=== PATIENT | male | born 1945 | race Caucasian/White ===

== ENCOUNTER 2024-03-04 14:59 | Inpatient (IN) | payer MEDICARE, MEDICAID, SELFPAY ==
[2024-03-04 15:04] VITALS: BP 132/51; BP 150/50; PULSE 107; PULSE 99; RESP 18; TEMP 36.8; O2SAT 96; BMI 24.9
[2024-03-04 15:13] VITALS: BP 132/51; PULSE 99; RESP 18; TEMP 36.8; O2SAT 96
--- NOTE | 2024-03-04 15:27 | ECG_ITS ---
Test Reason : FAILURE TO THRIVE Blood Pressure : / mmHG Vent. Rate : 088 BPM Atrial Rate : 088 BPM P-R Int : 152 ms QRS Dur : 078 ms QT Int : 362 ms P-R-T Axes : 069 012 044 degrees QTc Int : 438 ms Normal sinus rhythm Normal ECG No previous ECGs available Referred By: Jo Ann Barth Electronically Signed By:YARIEL MARTIN
--- NOTE | 2024-03-04 15:28 | ED_ITS ---
HPI - General Adult General Chief complaint: Failure to Thrive Stated complaint: PYSCH EVAL, NOT EATING X5 DAYS (dm) Time Seen by Provider: 03/04/24 15:23 Source: EMS Mode of arrival: EMS Limitations: other History of Present Illness ED Provider: Dr. Jo Ann Barth HPI narrative: Patient comes to the emergency room from assisted living. Patient has been refusing to eat for over 5 days. Patient is unable to give any significant history. Patient denies any abdominal pain, no recent illnesses. However, patient is a poor historian. Patient's facility requesting a psych eval Related Data Allergies Allergy/AdvReac Type Severity Reaction Status Date / Time allopurinol AdvReac Unknown Verified 03/04/24 15:10 chlorpromazine AdvReac Unknown Verified 03/04/24 15:10 haloperidol [From Haldol] AdvReac Unknown Verified 03/04/24 15:10 trifluoperazine AdvReac Unknown Verified 03/04/24 15:10 Review of Systems 2 Review of Systems: Yes Unobtainable due to mental status [facility] Past Medical History Medical History (Updated 03/04/24 @ 20:26 by Jo Ann Barth MD) Hypertension Major depression Schizoaffective disorder, bipolar type SIADH (syndrome of inappropriate ADH production) Epilepsy Hypothyroidism Hyperlipidemia COPD (chronic obstructive pulmonary disease) Diabetes Social History Social History Alcohol intake: former Smoked in Last 30 Days: No Advance Directives: Yes Advance Directives on File: Yes Advance Directives Date on File: 03/04/24 Do you have a plan to hurt others: No Plan Physical Exam ED Vital Signs: Vital Signs - 24 hr 03/04/24 15:04 03/04/24 15:13 03/04/24 15:13 Temperature 98.2 F 98.2 F Pulse Rate 99 99 Respiratory Rate 18 18 Blood Pressure 132/51 L 132/51 L Pulse Oximetry 96 96 Oxygen Delivery Method Room Air Room Air Room Air 03/04/24 15:39 03/04/24 17:38 Temperature 98.2 F 98.1 F Pulse Rate 102 H 86 Respiratory Rate 17 15 Blood Pressure 132/51 L 145/55 H Pulse Oximetry 97 98 Oxygen Delivery Method Room Air Room Air BMI result Body Mass Index 24.9 Const Other: Appearance: Alert. Oriented X1. Seems confused Eyes: Pupils equal, round and reactive to light. ENT: Pharynx normal. Neck: Normal inspection. Neck supple. No lymph nodes noted. No crepitus CVS: Normal heart rate and rhythm. Pulses normal. Normal S1 and S2 Respiratory: No respiratory distress. Breath sounds normal. No Wheezing. No rales Abdomen: Soft and nontender. No rigidity. No distention. Skin: Skin warm and dry. Normal skin color. Normal skin turgor. Extremities: No lower extremity edema. No Lacerations. No Rash Neuro: Oriented X1. No motor deficit. No sensory deficit. Moving all extremities. No slurred speech. CN 2 through 12 grossly intact Psych: calm, cooperative, Course Course Course Narrative: -all of patient's labs pending Medical Decision Making Medical Decision Making MDM Narrative: -patient's hematology and chemistry do not show any obvious abnormality. -patient requesting scrambled eggs and jose bakari. At this time, we only have gingival. -urinalysis pending -patient's nurse was informed by the patient's facility that they will not accept the patient back because they believe he needs a higher level of care. -care team consult and case management consult pending -20:30, patient has not provided a urine analysis. Pending. -sign-out given to my colleague Dr. Cox Differential Diagnosis Differential Diagnoses: The differential diagnosis associated with the presentation includes (Dementia, UTI) Admission/Observation Consideration of admission/observation: Escalation of care including admission/observation considered (Patient is under physician observation waiting for the care team and case management) Lab Data [facility] Lab Attestation statement: I reviewed the patient's lab results. 03/04/24 15:31 03/04/24 15:31 Labs: Lab Results 03/04/24 03/04/24 Range/Units 15:31 16:25 WBC 8.8 (4.8-10.8) X10*3/uL RBC 3.60 L (4.60-5.80) X10*6/uL Hgb 11.3 L (14.0-18.0) g/dl Hct 34.3 L (42.0-52.0) % MCV 95.3 (80.0-98.0) fL MCH 31.4 (27.0-33.0) pg MCHC 32.9 (31.0-36.0) g/dl RDW 14.3 (11.0-16.0) % Plt Count 234 (160-400) X10*3/uL MPV 10.0 (9.4-12.4) fL Immature Gran % (Auto) 0.6 H (0.0-0.4) % Neut % (Auto) 76.4 H (45-73) % Lymph % (Auto) 15.7 L (20-40) % [place] % (Auto) 6.3 (2-11) % Eos % (Auto) 0.5 (0-4) % Baso % (Auto) 0.5 (0-2) % Lymph # (Auto) 1.4 (1.2-4.9) X10*3/uL [place] # (Auto) 0.6 (0.1-1.2) X10*3/uL Eos # (Auto) 0.0 (0.0-0.4) X10*3/uL Baso # (Auto) 0.0 (0.0-0.2) X10*3/uL Abs Immat Gran (auto) 0.05 H (0.00-0.03) X10*3/uL Absolute Neuts (auto) 6.7 (2.0-8.3) x10*3/uL Absolute Nucleated RBC 0.000 (0.0-0.012) X10*3/uL Nucleated RBC % (auto) 0.0 (0.0-0.2) /100WBC Sodium 143 (135-145) mmol/L Potassium 3.6 (3.3-5.1) mmol/L Chloride 111 H (96-108) mmol/L Carbon Dioxide 17 L (22-29) mmol/L Anion Gap 19 (12-20) BUN 33 H (9-16) mg/dL Creatinine 0.97 (0.5-1.4) mg/dL Estim Creat Clear Calc 64.8 Estimated GFR > 60 POC Glucose 87 (60-115) mg/dL Random Glucose 111 (60-115) mg/dL Calcium 10.0 (8.4-10.2) mg/dL Magnesium 2.0 (1.6-2.6) mg/dL Critical Care Time Critical Care Time Critical Care Time: Yes Total Critical Care Time: 45 Attestation: I have personally provided critical care time. Time includes review of lab data, radiology results, discussion with consultants, and monitoring for potential decompensation. Intervention performed as documented. Discharge Plan Discharge Clinical Impression: Adult failure to thrive, Combative behavior Patient Disposition: Still a Patient Print Language: Greenlandic
[2024-03-04 15:39] VITALS: BP 132/51; PULSE 102; RESP 17; TEMP 36.8; O2SAT 97
[2024-03-04 15:42] LABS: MANUAL DIFF FLAG NO
--- NOTE | 2024-03-04 15:42 | PC.NURSE ---
Spoke with staff from facility that the pt is coming from. She stated that he has become increasingly paranoid and combative with staff. Also she had previously placed a referral to [facility] and they stated they would accept him in their acute setting and that transferring back to previous facility is most likely not an option at this time.
[2024-03-04 15:46] LABS: Basophils Percent Auto 0.5 % (0-2); Eosinophils Percent Auto 0.5 % (0-4); Hematocrit 34.3 % (42.0-52.0); Hemoglobin 11.3 g/dl (14.0-18.0); Imm Gran Abs Auto 0.05 X10*3/uL (0.00-0.03); Imm Gran Pct Auto 0.6 % (0.0-0.4); Lymphocytes Absolute Auto 1.4 X10*3/uL (1.2-4.9); Lymphocytes Percent Auto 15.7 % (20-40); Mean Corpuscular HGB Conc 32.9 g/dl (31.0-36.0); Mean Corpuscular Hemoglobin 31.4 pg (27.0-33.0); Mean Corpuscular Volume 95.3 fL (80.0-98.0); Monocytes Absolute Auto 0.6 X10*3/uL (0.1-1.2); Monocytes Percent Auto 6.3 % (2-11); Neutrophils Absolute Auto 6.7 x10*3/uL (2.0-8.3); Neutrophils Percent Auto 76.4 % (45-73); Platelet Count 234 X10*3/uL (160-400); Red Cell Distribution Width 14.3 % (11.0-16.0); White Blood Count 8.8 X10*3/uL (4.8-10.8)
[2024-03-04 16:00] LABS: Anion Gap 19 (12-20); Blood Urea Nitrogen 33 mg/dL (9-16); Carbon Dioxide 17 mmol/L (22-29); Chloride 111 mmol/L (96-108); Creatinine Clr Calc Pharmacy 64.8; Estimated Glomerular Filt Rate > 60; Glucose Random 111 mg/dL (60-115); Potassium 3.6 mmol/L (3.3-5.1); Sodium 143 mmol/L (135-145)
[2024-03-04 16:28] LABS: Glucose, Whole Blood 87 mg/dL (60-115)
[2024-03-04 17:38] VITALS: BP 145/55; PULSE 86; RESP 15; TEMP 36.7; O2SAT 98
--- NOTE | 2024-03-04 20:18 | PC.NURSE ---
at 1900 care assumed of this patient by this RN. pt requesting a big big plate of scrambled eggs. this RN unable to obtain at this time. pt states that is the only thing he is willing to eat at this time. able to get patient to agree to drinking jose bakari. requested 2-3cans of diet jose bakari. this RN provided pt with jose bakari, pt drank all 3 cans. still waiting on urine sample at this time. pt is aware.
[2024-03-04 22:14] VITALS: BP 135/58; PULSE 92; RESP 28; TEMP 36.7; O2SAT 98
--- NOTE | 2024-03-04 22:15 | MHC.EDTECH ---
Patient requested $160.00 with wallet to be locked in safe with security, white slip in patients folder.
[2024-03-04 23:05] LABS: Appearance Urine Clear; Color Urine Yellow; Glucose Urine UA Negative (Negative); Leukocyte Esterase Urine Negative (Negative); Nitrite Urine Negative (Negative); PH 5.5 (5.0-9.0); Specific Gravity - Urine 1.025 (1.005-1.025); Urine Blood Negative (Negative); Urine Ketones 15 mg/dL (Negative); Urine Protein Trace mg/dL (Neg-Trace)
[2024-03-05] VITALS (7 sets, daily range): BP systolic 121–159; BP diastolic 56–71; PULSE 82–105; RESP 12–20; TEMP 36.2–37.8; O2SAT 97–99; BMI 24.9
--- NOTE | 2024-03-05 07:51 | PHA.MEDREC ---
Pharmacy Consult ? Medication Reconciliation Pharmacy has completed the medication reconciliation, list provided from [facility].
--- NOTE | 2024-03-05 09:19 | MHC.CM.ED ---
Received notification from [facility] Team that patient will be admitted to psych unit. Case Management consult deferred at this time.
--- NOTE | 2024-03-05 13:12 | PC.NURSE ---
patient has been calm and cooperative during this shift.
--- NOTE | 2024-03-05 14:18 | PC.NURSE ---
Addendum entered by Atiya Raya 03/05/24 14:21: section [address]. Original Note: assumed care of pt at 1415, pt changed over into behaviour health clothing in ED w belongings secured. plan for locked geripsych placement per CARE team dispo. pt a&ox4, hypertensive, other vss. requesting burger for lunch - kitchen notified. denies any needs at this time.
[2024-03-05 16:05] LABS: Glucose, Whole Blood 91 mg/dL (60-115)
--- NOTE | 2024-03-05 17:15 | PC.NURSE ---
pt ate 100% of dinner, POC wnl, no insulin coverage needed.
--- NOTE | 2024-03-05 18:50 | PC.NURSE ---
Pt arrived to the unit via wheelchair by staff & security at 1835. Pt placed on 5 minute safety checks with ULB. Pt is a 12B. helmet coverer completed. Vital signs obtained. Pt does have a healing bruise to center of forehead with with a vertical healing slit. Pt states he had a fall 2 weeks ago at [facility]. Pt oriented to unit. Pt currently resting in bed. Admission needs to be completed.
[2024-03-05 20:42] LABS: Glucose, Whole Blood 167 mg/dL (60-115)
[2024-03-05] MEDS: Sodium Chloride Tab 1 GM TABLET PO (20:48)
[2024-03-05] MEDS: Atorvastatin Calcium 20 MG TABLET 60 MG PO (20:48)
[2024-03-05] MEDS: gemfibroziL 600 MG TABLET PO (20:48)
[2024-03-05] MEDS: Acetaminophen 325 MG TABLET 975 MG PO (20:49)
[2024-03-05] MEDS: Topiramate 100 MG TABLET PO (20:49)
[2024-03-05] MEDS: Insulin Lispro 100 UNIT/ML 3 ML VIAL SUBCUT (20:50)
[2024-03-05] MEDS: risperiDONE 2 MG TABLET 8 MG PO (20:50)
--- NOTE | 2024-03-06 01:41 | PC.ADMIT ---
Wily De Dios a 78 year old male, who was admitted to S1 on 03/05/24 @ 1835 from [facility] on a Sect 12b for treatment of Schizoaffective D/O. Patient signed a CV during admission process. Patient arrived to ED after being sent in for evaluation from [facility] in [place]. Per Care Team assessment patient has been there since January and since his arrival has been medication noncompliant. Most recently he has had an increase in combative behaviors, and has refused to eat for the past 3-5 days, patient reports he doesn't trust the food @ [facility] and that it is lousy, of note he ate well in the ED. Patient has a long HX of inpt hospitalizations and long winder tender care placements. Prior to arriving @ [facility] Wily was @ [facility] for approx. 8 months. He is alert and orientated to person, place, time and situation, states I'm not going back there, I want to return to [facility] in [place] . Wily presents as anxious, paranoid, and perseverating on what medications we will attempt to give him, I will not take the yellow pill! . Patient denies depression, pain, SI/HI and AVH. Reports he can't ambulate well with a walker because of weakness and wears a brief for incontinence of urine and stool. Patient has a HX of COPD, Type 2 diabetes, Epilepsy, Hyperlipidemia, HTN, hypothyroidism, SIADH syndrome, and Scizoaffective D/O. POC 167, given Lispro 2 units coverage. Arrived with no belongings, wearing hospital johnni. Unit rules given, orientated room. Snack offered and declined. Medication compliant. Placed on 5 minute checks for safety.
[2024-03-06] MEDS: Levothyroxine Sodium 88 MCG TABLET PO (05:48)
[2024-03-06 06:48] LABS: Glucose, Whole Blood 125 mg/dL (60-115)
[2024-03-06 07:55] VITALS: BP 136/72; PULSE 100; RESP 18; TEMP 36.7; O2SAT 97
[2024-03-06] MEDS: Acetaminophen 325 MG TABLET 975 MG PO ×2 (08:05→20:35)
[2024-03-06] MEDS: Topiramate 100 MG TABLET PO ×2 (08:08→20:36)
[2024-03-06] MEDS: gemfibroziL 600 MG TABLET PO ×2 (08:08→20:36)
[2024-03-06] MEDS: lisinopriL 2.5 MG TABLET PO (08:08)
[2024-03-06] MEDS: Fenofibrate 160 MG TABLET PO (08:08)
[2024-03-06] MEDS: Cyanocobalamin (Vitamin B-12) 500 MCG TABLET PO (08:08)
[2024-03-06] MEDS: Cholecalciferol (Vitamin D3) 25 MCG TABLET PO (08:09)
[2024-03-06] MEDS: Ibuprofen 800 MG TABLET PO (08:09)
[2024-03-06] MEDS: Sodium Chloride Tab 1 GM TABLET PO ×2 (08:09→20:37)
[2024-03-06 08:14] LABS: Estimated Average Glucose 105 mg/dL; Hemoglobin A1c % 5.3 % (<6.0)
[2024-03-06 08:31] LABS: Alanine Aminotransferase 19 U/L (0-40); Albumin Level 4.2 g/dL (3.5-5.0); Alkaline Phosphatase 64 U/L (39-117); Anion Gap 16 (12-20); Aspartate Amino Transferase 24 U/L (5-37); Bilirubin Total 0.2 mg/dL (0.0-1.0); Blood Urea Nitrogen 29 mg/dL (9-16); Calcium 9.7 mg/dL (8.4-10.2); Carbon Dioxide 19 mmol/L (22-29); Chloride 108 mmol/L (96-108); Cholesterol 118 mg/dL (<200); Creatinine Clr Calc Pharmacy 58.7; Estimated Glomerular Filt Rate > 60; Glucose Fasting 143 mg/dL (60-99); HDL Cholesterol 25 mg/dL (>40); LDL Cholesterol Calculated 71 mg/dL (<100); Potassium 3.7 mmol/L (3.3-5.1); Sodium 139 mmol/L (135-145); Triglycerides 111 mg/dL (<150)
[2024-03-06 08:46] LABS: Thyroid Stimulating Hormone 0.33 uIU/mL (0.32-4.0)
[2024-03-06 09:10] LABS: Folate 4.8 ng/mL (> or = 4.0); Vitamin B12 1402 pg/mL (200-900)
[2024-03-06 11:43] LABS: Glucose, Whole Blood 144 mg/dL (60-115)
--- NOTE | 2024-03-06 14:46 | P.HPPS_ITS ---
HPI Date of Service: 03/06/24 Chief Complaint: SI Sources of Information: patient interviewed, chart reviewed and crisis/core team assessment reviewed HPI Subjective Notes: Obrien Warning and Conditional Voluntary Narrative: The patient is a 78-year-old male, a very poor historian who was transferred from [facility] to our emergency room since he was not eating for 5 days and noncompliant with medications since he was transferred from hospital to that facility on January 24. Apparently, the patient had being more aggressive, delusional and recently refused to eat for 5 days. He was rushed to the emergency room for assessment. He was assessed by the care team and transferring to this facility for psychiatric stabilization. The patient carries a diagnosis of schizoaffective disorder bipolar type and apparently he had been admitted for several months at [facility] and then transferred on January 24 2 [facility]. It is unclear if he has a role years order or a guardian. On the interview intake, the patient is a very poor historian he states that he is feeling fine that he is eating the food here and he feels safe here. He denies acute auditory hallucinations but he looks confused and disheveled. He is willing to continue treatment here. He denies active suicidal or homicidal thoughts but he looks slightly irritable with poor short attention span. We will try to gather more collateral information, he signed a conditional voluntary and understood the Obrien warning. Medical Evaluation Reviewed: Yes [facility] Medical History Hypertension Major depression Schizoaffective disorder, bipolar type SIADH (syndrome of inappropriate ADH production) Epilepsy Hypothyroidism Hyperlipidemia COPD (chronic obstructive pulmonary disease) Diabetes Family History: Unknown Social History: The patient was placed admission care on 01/25/2024 after being several months in the hospital. Substance History: Denies Trauma History: Denies Diagnostics Vital Signs (24Hr): Vital Signs - 24 hr 03/05/24 16:02 03/05/24 18:49 03/05/24 20:00 Temperature 98.3 F 97.6 F 97.1 F Pulse Rate 93 105 H 82 Respiratory Rate 20 18 16 Blood Pressure 154/66 H 159/71 H 147/65 H Pulse Oximetry 99 99 98 Oxygen Delivery Method Room Air Room Air Room Air 03/06/24 07:55 Temperature 98.1 F Pulse Rate 100 Respiratory Rate 18 Blood Pressure 136/72 Pulse Oximetry 97 Oxygen Delivery Method Room Air BMI result Body Mass Index 24.9 Labs 03/04/24 15:31 03/06/24 08:02 Labs: Laboratory Results - last 48 hr 03/04/24 03/04/24 03/04/24 15:31 16:25 22:56 WBC 8.8 RBC 3.60 L Hgb 11.3 L Hct 34.3 L MCV 95.3 MCH 31.4 MCHC 32.9 RDW 14.3 Plt Count 234 MPV 10.0 Immature Gran % (Auto) 0.6 H Neut % (Auto) 76.4 H Lymph % (Auto) 15.7 L [place] % (Auto) 6.3 Eos % (Auto) 0.5 Baso % (Auto) 0.5 Lymph # (Auto) 1.4 [place] # (Auto) 0.6 Eos # (Auto) 0.0 Baso # (Auto) 0.0 Abs Immat Gran (auto) 0.05 H Absolute Neuts (auto) 6.7 Absolute Nucleated RBC 0.000 Nucleated RBC % (auto) 0.0 Sodium 143 Potassium 3.6 Chloride 111 H Carbon Dioxide 17 L Anion Gap 19 BUN 33 H Creatinine 0.97 Estim Creat Clear Calc 64.8 Estimated GFR > 60 POC Glucose 87 Random Glucose 111 Fasting Glucose Estimat Average Glucose Hemoglobin A1c % Calcium 10.0 Magnesium 2.0 Total Bilirubin AST ALT Alkaline Phosphatase Total Protein Albumin Triglycerides Cholesterol LDL Cholesterol, Calc HDL Cholesterol Vitamin B12 Folate TSH Urine Color Yellow Urine Appearance Clear Urine pH 5.5 Ur Specific [place] 1.025 Urine Protein Trace Urine Glucose (UA) Negative Urine Ketones 15 Urine Blood Negative Urine Nitrite Negative Ur Leukocyte Esterase Negative 03/05/24 03/05/24 03/06/24 16:02 20:39 06:30 WBC RBC Hgb Hct MCV MCH MCHC RDW Plt Count MPV Immature Gran % (Auto) Neut % (Auto) Lymph % (Auto) [place] % (Auto) Eos % (Auto) Baso % (Auto) Lymph # (Auto) [place] # (Auto) Eos # (Auto) Baso # (Auto) Abs Immat Gran (auto) Absolute Neuts (auto) Absolute Nucleated RBC Nucleated RBC % (auto) Sodium Potassium Chloride Carbon Dioxide Anion Gap BUN Creatinine Estim Creat Clear Calc Estimated GFR POC Glucose 91 167 H 125 H Random Glucose Fasting Glucose Estimat Average Glucose Hemoglobin A1c % Calcium Magnesium Total Bilirubin AST ALT Alkaline Phosphatase Total Protein Albumin Triglycerides Cholesterol LDL Cholesterol, Calc HDL Cholesterol Vitamin B12 Folate TSH Urine Color Urine Appearance Urine pH Ur Specific [place] Urine Protein Urine Glucose (UA) Urine Ketones Urine Blood Urine Nitrite Ur Leukocyte Esterase 03/06/24 03/06/24 08:02 11:33 WBC RBC Hgb Hct MCV MCH MCHC RDW Plt Count MPV Immature Gran % (Auto) Neut % (Auto) Lymph % (Auto) [place] % (Auto) Eos % (Auto) Baso % (Auto) Lymph # (Auto) [place] # (Auto) Eos # (Auto) Baso # (Auto) Abs Immat Gran (auto) Absolute Neuts (auto) Absolute Nucleated RBC Nucleated RBC % (auto) Sodium 139 Potassium 3.7 Chloride 108 Carbon Dioxide 19 L Anion Gap 16 BUN 29 H Creatinine 1.07 Estim Creat Clear Calc 58.7 Estimated GFR > 60 POC Glucose 144 H Random Glucose Fasting Glucose 143 H Estimat Average Glucose 105 Hemoglobin A1c % 5.3 Calcium 9.7 Magnesium Total Bilirubin 0.2 AST 24 ALT 19 Alkaline Phosphatase 64 Total Protein 7.0 Albumin 4.2 Triglycerides 111 Cholesterol 118 LDL Cholesterol, Calc 71 HDL Cholesterol 25 L Vitamin B12 1402 H Folate 4.8 TSH 0.33 Urine Color Urine Appearance Urine pH Ur Specific [place] Urine Protein Urine Glucose (UA) Urine Ketones Urine Blood Urine Nitrite Ur Leukocyte Esterase Meds/Allergies Meds Home Medications ?Medication ?Instructions ?Recorded ?Confirmed ?Type acetaminophen 325 mg tablet 325 mg PO Q8H PRN Mild Pain (Scale 03/05/24 03/05/24 History Score 1-4) acetaminophen 325 mg tablet 975 mg PO BID 03/05/24 03/05/24 History atorvastatin 20 mg tablet 60 mg PO BEDTIME 03/05/24 03/05/24 History benztropine 0.5 mg tablet 0.5 mg PO BEDTIME PRN secretions 03/05/24 03/05/24 History at bedtime bisacodyl 10 mg rectal suppository 10 mg W[place] DAILY PRN Constipation 03/05/24 03/05/24 History cholecalciferol (vitamin D3) 25 25 mcg PO DAILY 03/05/24 03/05/24 History mcg (1,000 unit) tablet (Vitamin D3) cyanocobalamin (vitamin B-12) 500 500 mcg PO DAILY 03/05/24 03/05/24 History mcg tablet [id number] 24 24 g PO Q15M 03/05/24 03/05/24 History gram/31 gram oral gel (Insta-Glucose (with dextrin)) fenofibrate 160 mg tablet 160 mg PO DAILY 03/05/24 03/05/24 History gemfibrozil 600 mg tablet 600 mg PO BID 03/05/24 03/05/24 History glucagon 1 mg/0.2 mL subcutaneous 1 mg subcut Q15M PRN hypoglycemia 03/05/24 03/05/24 History solution (Gvoke) unresponsiveness guaifenesin 100 mg/5 mL oral liquid 200 mg PO Q12H PRN Cough 03/05/24 03/05/24 History ibuprofen 800 mg tablet 800 mg PO DAILY 03/05/24 03/05/24 History insulin glargine 100 unit/mL (3 4 unit subcut DAILY 03/05/24 03/05/24 History mL) subcutaneous pen (Lantus Solostar U-100 Insulin) insulin lispro 100 unit/mL 1 sliding scale dose subcut 03/05/24 03/05/24 History subcutaneous pen USEASDIRECTD levothyroxine 88 mcg tablet 88 mcg PO DAILY@0600 03/05/24 03/05/24 History lisinopril 2.5 mg tablet 2.5 mg PO DAILY 03/05/24 03/05/24 History magnesium hydroxide 400 mg/5 mL 30 ml PO DAILY PRN Constipation 03/05/24 03/05/24 History oral suspension (Milk of Magnesia) naloxone 0.4 mg/mL injection 0.4 mg IM Q2M PRN suspected opioid 03/05/24 03/05/24 History solution overdose naloxone 4 mg/actuation nasal 4 mg intranasal Q3M PRN suspected 03/05/24 03/05/24 History spray (Narcan) opioid overdose risperidone 2 mg tablet 6 mg PO DAILY 03/05/24 03/05/24 History risperidone 4 mg tablet 8 mg PO BEDTIME 03/05/24 03/05/24 History sodium chloride 1,000 mg soluble 1,000 mg PO BID 03/05/24 03/05/24 History tablet sodium phosphates 19 gram-7 118 ml [place] DAILY PRN if bisacodyl 03/05/24 03/05/24 History gram/118 mL enema (Fleet Enema) supp ineffective topiramate 100 mg tablet 100 mg PO BID 03/05/24 03/05/24 History Allergies Allergies Allergy/AdvReac Type Severity Reaction Status Date / Time allopurinol AdvReac Unknown Verified 03/04/24 15:10 chlorpromazine AdvReac Unknown Verified 03/04/24 15:10 haloperidol [From Haldol] AdvReac Unknown Verified 03/04/24 15:10 trifluoperazine AdvReac Unknown Verified 03/04/24 15:10 Mental Status Exam Mental Status Exam Patient Appearance: Disheveled and Appropriate Patient Orientation: Person and Situation Level of Consciousness: Awake Patient Behavior: Guarded and Passive Mood Description: Withdrawn Affect Description: Blunted Patient Cognition Impaired: Yes Ability to Follow Directions: Fair Speech Pattern: Clear Hallucinations: None Delusions: Paranoid Ideation Thought Process: Illogical and Distracted Thought Content: positive for [place] and positive for Poverty of Content Judgement: Poor Assessment & Plan Assessment & Plan (1) Schizoaffective disorder: Status: Acute Code(s): F25.9 - Schizoaffective disorder, unspecified Plan The patient is an elderly male with a past history of schizoaffective disorder on a very high dose of Risperdal noncompliant with medications who was brought after stopping eating for 5 days and noncompliance with antipsychotics for more than 30 days. At this moment currently psychotic. Plan 1. Gather collateral information. 2. I accepted the CV and he understood Obrien warning. 3. Continue with Risperdal as prescribed. 4. Follow-up with medical team. 5. 15 minute checks Patient educated on: diagnosis, therapeutic strategies and medical condition Reason for continued inpatient stay Substantial Risk for: inability to function, rapid decompensation and med/psych decompensation Statement Statement: I have reviewed the history and physical and performed a pertinent examination on my patient. No changes have occurred unless specified. If the History and Physical was not performed prior to admission, the Hospitalist's service will be consulted for completing the admission physical. Time Spent With Patient Time: Total time managing care of this patient today __45__ minutes.
[2024-03-06 16:29] LABS: Glucose, Whole Blood 138 mg/dL (60-115)
[2024-03-06 20:00] VITALS: BP 153/69; PULSE 80; RESP 18; TEMP 36.9; O2SAT 96
[2024-03-06 20:25] LABS: Glucose, Whole Blood 195 mg/dL (60-115)
[2024-03-06] MEDS: Atorvastatin Calcium 20 MG TABLET 60 MG PO (20:36)
[2024-03-06] MEDS: traZODone HCL 50 MG TABLET PO (20:37)
[2024-03-06] MEDS: Insulin Lispro 100 UNIT/ML 3 ML VIAL SUBCUT (20:37)
[2024-03-06] MEDS: risperiDONE 2 MG TABLET 8 MG PO (20:37)
[2024-03-07] MEDS: Levothyroxine Sodium 88 MCG TABLET PO (06:05)
[2024-03-07 06:42] LABS: Glucose, Whole Blood 141 mg/dL (60-115)
[2024-03-07 07:00] VITALS: BMI 25.0
[2024-03-07 07:55] VITALS: BP 167/72; PULSE 107; RESP 18; TEMP 36.6; O2SAT 98
[2024-03-07] MEDS: Cyanocobalamin (Vitamin B-12) 500 MCG TABLET PO (08:07)
[2024-03-07] MEDS: Sodium Chloride Tab 1 GM TABLET PO ×2 (08:07→20:49)
[2024-03-07] MEDS: Ibuprofen 800 MG TABLET PO (08:07)
[2024-03-07] MEDS: Acetaminophen 325 MG TABLET 975 MG PO ×2 (08:08→20:48)
[2024-03-07] MEDS: Fenofibrate 160 MG TABLET PO (08:08)
[2024-03-07] MEDS: gemfibroziL 600 MG TABLET PO ×2 (08:08→20:49)
[2024-03-07] MEDS: lisinopriL 2.5 MG TABLET PO (08:08)
[2024-03-07] MEDS: Cholecalciferol (Vitamin D3) 25 MCG TABLET PO (08:08)
[2024-03-07] MEDS: Topiramate 100 MG TABLET PO ×2 (08:09→20:49)
[2024-03-07 11:18] LABS: Glucose, Whole Blood 110 mg/dL (60-115)
--- NOTE | 2024-03-07 11:33 | HO.PSYCHPN ---
Subjective Subjective Date of Service: 03/07/24 Reason For Visit: SI Subjective Notes: Conditional Voluntary Interim History: Pt slept through the night. He declined risperidone 6mg because it was not yellow. He reports he is doing well. He asks this assembly instructions writer about color of all his medications, which this assembly instructions writer explains I am not familiar with the colors and they can change. He reports doing well. He denies SI/HI. His SBP in 160's he is on low dose lisinopril 2.5mg po daily, discussed to increase to 5mg po daily. He asks about the color of the lisinopril... reassurance provided that it was safe to take. His urine has a fishy, strong smell- will order UA. Medication Compliance: No Diagnostics Vital Signs (24Hr): Vital Signs - 24 hr 03/06/24 20:00 03/07/24 07:55 Temperature 98.5 F 97.8 F Pulse Rate 80 107 H Respiratory Rate 18 18 Blood Pressure 153/69 H 167/72 H Pulse Oximetry 96 98 Oxygen Delivery Method Room Air Room Air BMI result Body Mass Index 25.0 Labs 03/04/24 15:31 03/06/24 08:02 Labs: Laboratory Results - last 48 hr 03/05/24 03/05/24 03/06/24 16:02 20:39 06:30 Sodium Potassium Chloride Carbon Dioxide Anion Gap BUN Creatinine Estim Creat Clear Calc Estimated GFR POC Glucose 91 167 H 125 H Fasting Glucose Estimat Average Glucose Hemoglobin A1c % Calcium Total Bilirubin AST ALT Alkaline Phosphatase Total Protein Albumin Triglycerides Cholesterol LDL Cholesterol, Calc HDL Cholesterol Vitamin B12 Folate TSH 03/06/24 03/06/24 03/06/24 08:02 11:33 16:14 Sodium 139 Potassium 3.7 Chloride 108 Carbon Dioxide 19 L Anion Gap 16 BUN 29 H Creatinine 1.07 Estim Creat Clear Calc 58.7 Estimated GFR > 60 POC Glucose 144 H 138 H Fasting Glucose 143 H Estimat Average Glucose 105 Hemoglobin A1c % 5.3 Calcium 9.7 Total Bilirubin 0.2 AST 24 ALT 19 Alkaline Phosphatase 64 Total Protein 7.0 Albumin 4.2 Triglycerides 111 Cholesterol 118 LDL Cholesterol, Calc 71 HDL Cholesterol 25 L Vitamin B12 1402 H Folate 4.8 TSH 0.33 03/06/24 03/07/24 03/07/24 20:15 06:37 11:11 Sodium Potassium Chloride Carbon Dioxide Anion Gap BUN Creatinine Estim Creat Clear Calc Estimated GFR POC Glucose 195 H 141 H 110 Fasting Glucose Estimat Average Glucose Hemoglobin A1c % Calcium Total Bilirubin AST ALT Alkaline Phosphatase Total Protein Albumin Triglycerides Cholesterol LDL Cholesterol, Calc HDL Cholesterol Vitamin B12 Folate TSH Medications Medications Current Medications Acetaminophen (Acetaminophen 325 Mg Tablet) 975 mg PO BID [facility] Last Admin: 03/07/24 08:08 Dose: 975 mg Acetaminophen (Acetaminophen 325 Mg Tablet) 650 mg PO Q6H PRN PRN Reason: Headache/Pain Mild Scale (1-3) Al Hydroxide/Mg Hydroxide (Magnesium Hydrox/Alum Hydrox 30 Ml Oral.Susp) 30 ml PO Q6H PRN PRN Reason: Heartburn/Nausea Atorvastatin Calcium (Atorvastatin Calcium 20 Mg Tablet) 60 mg PO BEDTIME [facility] Last Admin: 03/06/24 20:36 Dose: 60 mg Benztropine Mesylate (Benztropine Mesylate 0.5 Mg Tablet) 0.5 mg PO BEDTIME PRN PRN Reason: secretions at bedtime Bisacodyl (Bisacodyl 10 Mg Supp.Rect) 10 mg MS DAILY PRN PRN Reason: Constipation Cyanocobalamin (Cyanocobalamin (Vitamin B-12) 500 Mcg Tablet) 500 mcg PO DAILY [facility] Last Admin: 03/07/24 08:07 Dose: 500 mcg Fenofibrate (Fenofibrate 160 Mg Tablet) 160 mg PO DAILY [facility] Last Admin: 03/07/24 08:08 Dose: 160 mg Gemfibrozil (Gemfibrozil 600 Mg Tablet) 600 mg PO BID [facility] Last Admin: 03/07/24 08:08 Dose: 600 mg Glucose (Glucose Gel 15 Gm Gel..Gram.) 15 gm PO Q15M PRN; Protocol PRN Reason: per Hypoglycemia Standing Ord. Guaifenesin (Guaifenesin 100 Mg/5 Ml Liquid) 10 ml PO Q12H PRN PRN Reason: Cough Hydroxyzine HCl (Hydroxyzine Hcl 25 Mg Tablet) 25 mg PO Q6H PRN PRN Reason: Anxiety Dextrose (D10) 250 mls @ 750 mls/hr IV Q15M PRN; Protocol PRN Reason: per Hypoglycemia Standing Ord. Ibuprofen (Ibuprofen 800 Mg Tablet) 800 mg PO DAILY [facility] Last Admin: 03/07/24 08:07 Dose: 800 mg Insulin Glargine (Insulin Glargine,Hum.Rec.Anlog 100 Unit/Ml 10 Ml Vial) 4 unit SUBCUT DAILY [facility] Last Admin: 03/07/24 08:09 Dose: Not Given Insulin Human Lispro (Insulin Lispro 100 Unit/Ml 3 Ml Vial) 0 unit SUBCUT QIDACHS [facility]; Protocol Last Admin: 03/07/24 11:21 Dose: Not Given Levothyroxine Sodium (Levothyroxine Sodium 88 Mcg Tablet) 88 mcg PO DAILY@0600 [facility] Last Admin: 03/07/24 06:05 Dose: 88 mcg Lisinopril (Lisinopril 2.5 Mg Tablet) 2.5 mg PO DAILY [facility]; Protocol Last Admin: 03/07/24 08:08 Dose: 2.5 mg Magnesium Hydroxide (Milk Of Magnesia 30 Ml Oral.Susp) 30 ml PO DAILY PRN PRN Reason: Constipation Magnesium Hydroxide (Milk Of Magnesia 30 Ml Oral.Susp) 30 ml PO DAILY PRN PRN Reason: Constipation Naloxone HCl (Naloxone Hcl 0.4 Mg/Ml Vial) 0.4 mg IM Q2M PRN PRN Reason: suspected opioid overdose Naloxone HCl (Naloxone Hcl Nasal 4 Mg [place]) 4 mg NOSTRILALT Q3M PRN PRN Reason: suspected opioid overdose Risperidone (Risperidone 3 Mg Tablet) 6 mg PO DAILY [facility] Last Admin: 03/07/24 08:08 Dose: Not Given Risperidone (Risperidone 2 Mg Tablet) 8 mg PO BEDTIME [facility] Last Admin: 03/06/24 20:37 Dose: 8 mg Sodium Biphosphate/Sodium Phosphate (Sodium Phosphate,[place]-Dibasic 133 Ml Enema) 118 ml MS DAILY PRN PRN Reason: if bisacodyl supp ineffective Sodium Chloride (Sodium Chloride Tab 1 Gm Tablet) 1 gm PO BID [facility] Last Admin: 03/07/24 08:07 Dose: 1 gm Topiramate (Topiramate 100 Mg Tablet) 100 mg PO BID [facility] Last Admin: 03/07/24 08:09 Dose: 100 mg Trazodone HCl (Trazodone Hcl 50 Mg Tablet) 50 mg PO BEDTIME MRX1 PRN PRN Reason: Insomnia Last Admin: 03/06/24 20:37 Dose: 50 mg Vitamin D (Cholecalciferol (Vitamin D3) 25 Mcg Tablet) 25 mcg PO DAILY [facility] Last Admin: 03/07/24 08:08 Dose: 25 mcg Allergies Allergies Allergy/AdvReac Type Severity Reaction Status Date / Time allopurinol AdvReac Unknown Verified 03/04/24 15:10 chlorpromazine AdvReac Unknown Verified 03/04/24 15:10 haloperidol [From Haldol] AdvReac Unknown Verified 03/04/24 15:10 trifluoperazine AdvReac Unknown Verified 03/04/24 15:10 Assessment & Plan Assessment & Plan (1) Schizoaffective disorder: Status: Acute Code(s): F25.9 - Schizoaffective disorder, unspecified Plan The patient is an elderly male with a past history of schizoaffective disorder on a very high dose of Risperdal noncompliant with medications who was brought after stopping eating for 5 days and noncompliance with antipsychotics for more than 30 days. At this moment currently psychotic. Plan 03/07 UA for fishy smell, refused risperidone 6mg due to color- he does have a beth's includes GASTELUM--> risperidone Consta 50mg IM every 2 weeks. Reason for continued inpatient stay Substantial Risk for: inability to function Time Spent With Patient Time: Total time managing care of this patient today ____ minutes.
--- NOTE | 2024-03-07 11:41 | PC.NURSE ---
The patient is demanding a new wheelchair, brand new from the box . Only a brown one . This nurse spoke with the patient and explained we have no new wheelchairs, that we could help him to the wheelchair that we have so he can come out to the common area for lunch. The pt continued to speak over this nurse stating No, no, no, you don't know what you are talking about . The pt then stated You are refusing to feed me, this is all your fault . I explained to the patient that he has the physical ability to walk out to the common area for lunch, but if her preferred a wheelchair, we would provide a wheelchair and he can bring himself down the hallway in the wheelchair to lunch. Pt then told me to get out of his room. The human rights officer went in to talk to the patient, explained again that we have no new wheelchairs, and if he wanted to come to lunch he needs to use one of the wheelchairs that we have. The patient then agreed to get into a wheelchair and come down for lunch.
[2024-03-07 16:46] LABS: Glucose, Whole Blood 121 mg/dL (60-115)
[2024-03-07 16:48] LABS: Appearance Urine Clear; Color Urine Yellow; Glucose Urine UA 100 mg/dL (Negative); Leukocyte Esterase Urine Negative (Negative); Nitrite Urine Negative (Negative); Urine Blood Negative (Negative); Urine Ketones Negative (Negative); Urine Protein Negative (Neg-Trace)
[2024-03-07 16:50] LABS: Bacteria Urine None Seen (None Seen); RBC Urine 0-2 /HPF (0-2); Squamous Epithelial Cell Urine 0-2 /HPF (0-2); WBC Urine 0-5 /HPF (0-5)
[2024-03-07 19:56] LABS: Glucose, Whole Blood 107 mg/dL (60-115)
[2024-03-07 20:00] VITALS: BP 139/66; PULSE 76; RESP 18; TEMP 36.1; O2SAT 97
[2024-03-07] MEDS: Atorvastatin Calcium 20 MG TABLET 60 MG PO (20:49)
[2024-03-07] MEDS: traZODone HCL 50 MG TABLET PO (20:49)
[2024-03-07] MEDS: risperiDONE 2 MG TABLET 8 MG PO (20:49)
[2024-03-08] MEDS: Levothyroxine Sodium 88 MCG TABLET PO (05:41)
[2024-03-08 06:44] LABS: Glucose, Whole Blood 120 mg/dL (60-115)
[2024-03-08 08:00] VITALS: BP 116/61; PULSE 110; RESP 17; TEMP 36.1; O2SAT 99
[2024-03-08] MEDS: Cholecalciferol (Vitamin D3) 25 MCG TABLET PO (08:06)
[2024-03-08] MEDS: Acetaminophen 325 MG TABLET 975 MG PO ×2 (08:06→21:07)
[2024-03-08] MEDS: Sodium Chloride Tab 1 GM TABLET PO ×2 (08:06→21:09)
[2024-03-08] MEDS: gemfibroziL 600 MG TABLET PO ×2 (08:06→21:10)
[2024-03-08] MEDS: Topiramate 100 MG TABLET PO ×2 (08:06→21:09)
[2024-03-08] MEDS: Ibuprofen 800 MG TABLET PO (08:06)
[2024-03-08] MEDS: Cyanocobalamin (Vitamin B-12) 500 MCG TABLET PO (08:06)
[2024-03-08] MEDS: Fenofibrate 160 MG TABLET PO (08:06)
[2024-03-08] MEDS: lisinopriL 2.5 MG TABLET PO (08:07)
[2024-03-08 11:23] LABS: Glucose, Whole Blood 126 mg/dL (60-115)
--- NOTE | 2024-03-08 15:17 | HO.PSYCHPN ---
Subjective Subjective Date of Service: 03/08/24 Reason For Visit: SI Subjective Notes: Conditional Voluntary Interim History: The nursing staff reported the patient had been compliant with treatment at night but he refused his medication in the morning. He is on a 1 years order and we will review it. On interview the patient denies new symptoms states that he feels less depressed with persistent and fixed thoughts. Chronically psychotic. Latif order does not have IR antipsychotic as alternative. Mental Status Exam Mental Status Exam Patient Appearance: Unkempt Patient Orientation: Person and Situation Level of Consciousness: Awake and Appropriate Patient Behavior: Guarded and Passive Mood Description: Withdrawn Affect Description: Constricted Patient Cognition Impaired: Yes Ability to Follow Directions: Good Speech Pattern: Clear Hallucinations: None Delusions: Paranoid Ideation Thought Process: Distracted and Slowed Thinking Thought Content: positive for [place] and positive for Poverty of Content Judgement: Poor Diagnostics Vital Signs (24Hr): Vital Signs - 24 hr 03/07/24 20:00 03/08/24 08:00 Temperature 97 F 97.0 F Pulse Rate 76 110 H Respiratory Rate 18 17 Blood Pressure 139/66 116/61 Pulse Oximetry 97 99 Oxygen Delivery Method Room Air Room Air BMI result Body Mass Index 25.0 Labs 03/04/24 15:31 03/06/24 08:02 Labs: Laboratory Results - last 48 hr 03/06/24 03/06/24 03/07/24 16:14 20:15 06:37 POC Glucose 138 H 195 H 141 H Urine Color Urine Appearance Urine pH Ur Specific [place] Urine Protein Urine Glucose (UA) Urine Ketones Urine Blood Urine Nitrite Ur Leukocyte Esterase Urine RBC Urine WBC Ur Squamous Epith Cells Urine Bacteria Hyaline Casts 03/07/24 03/07/24 03/07/24 11:11 16:20 16:40 POC Glucose 110 121 H Urine Color Yellow Urine Appearance Clear Urine pH 6.0 Ur Specific [place] 1.020 Urine Protein Negative Urine Glucose (UA) 100 H Urine Ketones Negative Urine Blood Negative Urine Nitrite Negative Ur Leukocyte Esterase Negative Urine RBC 0-2 Urine WBC 0-5 Ur Squamous Epith Cells 0-2 Urine Bacteria None Seen Hyaline Casts 3-5 03/07/24 03/08/24 03/08/24 19:50 06:29 11:19 POC Glucose 107 120 H 126 H Urine Color Urine Appearance Urine pH Ur Specific [place] Urine Protein Urine Glucose (UA) Urine Ketones Urine Blood Urine Nitrite Ur Leukocyte Esterase Urine RBC Urine WBC Ur Squamous Epith Cells Urine Bacteria Hyaline Casts Medications Medications Current Medications Acetaminophen (Acetaminophen 325 Mg Tablet) 975 mg PO BID [facility] Last Admin: 03/08/24 08:06 Dose: 975 mg Al Hydroxide/Mg Hydroxide (Magnesium Hydrox/Alum Hydrox 30 Ml Oral.Susp) 30 ml PO Q6H PRN PRN Reason: Heartburn/Nausea Atorvastatin Calcium (Atorvastatin Calcium 20 Mg Tablet) 60 mg PO BEDTIME [facility] [place] Last Admin: 03/07/24 20:49 Dose: 60 mg Benztropine Mesylate (Benztropine Mesylate 0.5 Mg Tablet) 0.5 mg PO BEDTIME PRN PRN Reason: secretions at bedtime Bisacodyl (Bisacodyl 10 Mg Supp.Rect) 10 mg [place] DAILY PRN PRN Reason: Constipation Cyanocobalamin (Cyanocobalamin (Vitamin B-12) 500 Mcg Tablet) 500 mcg PO DAILY [facility] [place] Last Admin: 03/08/24 08:06 Dose: 500 mcg Fenofibrate (Fenofibrate 160 Mg Tablet) 160 mg PO DAILY [facility] [place] Last Admin: 03/08/24 08:06 Dose: 160 mg Gemfibrozil (Gemfibrozil 600 Mg Tablet) 600 mg PO BID [facility] Last Admin: 03/08/24 08:06 Dose: 600 mg Glucose (Glucose Gel 15 Gm Gel..Gram.) 15 gm PO Q15M PRN; Protocol PRN Reason: per Hypoglycemia Standing Ord. Guaifenesin (Guaifenesin 100 Mg/5 Ml Liquid) 10 ml PO Q12H PRN PRN Reason: Cough Hydroxyzine HCl (Hydroxyzine Hcl 25 Mg Tablet) 25 mg PO Q6H PRN PRN Reason: Anxiety Dextrose (D10) 250 mls @ 750 mls/hr IV Q15M PRN; Protocol PRN Reason: per Hypoglycemia Standing Ord. Ibuprofen (Ibuprofen 800 Mg Tablet) 800 mg PO DAILY [facility] [place] Last Admin: 03/08/24 08:06 Dose: 800 mg Insulin Glargine (Insulin Glargine,Hum.Rec.Anlog 100 Unit/Ml 10 Ml Vial) 4 unit SUBCUT DAILY [facility] [place] Last Admin: 03/08/24 07:56 Dose: Not Given Insulin Human Lispro (Insulin Lispro 100 Unit/Ml 3 Ml Vial) 0 unit SUBCUT QIDACHS [facility] [place]; Protocol Last Admin: 03/08/24 11:25 Dose: Not Given Levothyroxine Sodium (Levothyroxine Sodium 88 Mcg Tablet) 88 mcg PO DAILY@0600 [facility] [place] Last Admin: 03/08/24 05:41 Dose: 88 mcg Lisinopril (Lisinopril 2.5 Mg Tablet) 2.5 mg PO DAILY [facility]; Protocol Last Admin: 03/08/24 08:07 Dose: 2.5 mg Magnesium Hydroxide (Milk Of Magnesia 30 Ml Oral.Susp) 30 ml PO DAILY PRN PRN Reason: Constipation Magnesium Hydroxide (Milk Of Magnesia 30 Ml Oral.Susp) 30 ml PO DAILY PRN PRN Reason: Constipation Naloxone HCl (Naloxone Hcl 0.4 Mg/Ml Vial) 0.4 mg IM Q2M PRN PRN Reason: suspected opioid overdose Naloxone HCl (Naloxone Hcl Nasal 4 Mg [place]) 4 mg NOSTRILALT Q3M PRN PRN Reason: suspected opioid overdose Risperidone (Risperidone 3 Mg Tablet) 6 mg PO DAILY [facility] [place] Last Admin: 03/08/24 08:10 Dose: Not Given Risperidone (Risperidone 2 Mg Tablet) 8 mg PO BEDTIME [facility] [place] Last Admin: 03/07/24 20:49 Dose: 8 mg Sodium Biphosphate/Sodium Phosphate (Sodium Phosphate,[place]-Dibasic 133 Ml Enema) 118 ml [place] DAILY PRN PRN Reason: if bisacodyl supp ineffective Sodium Chloride (Sodium Chloride Tab 1 Gm Tablet) 1 gm PO BID [facility] [place] Last Admin: 03/08/24 08:06 Dose: 1 gm Topiramate (Topiramate 100 Mg Tablet) 100 mg PO BID [facility] [place] Last Admin: 03/08/24 08:06 Dose: 100 mg Trazodone HCl (Trazodone Hcl 50 Mg Tablet) 50 mg PO BEDTIME MRX1 PRN PRN Reason: Insomnia Last Admin: 03/07/24 20:49 Dose: 50 mg Vitamin D (Cholecalciferol (Vitamin D3) 25 Mcg Tablet) 25 mcg PO DAILY [facility] [place] Last Admin: 03/08/24 08:06 Dose: 25 mcg Allergies Allergies Allergy/AdvReac Type Severity Reaction Status Date / Time allopurinol AdvReac Unknown Verified 03/04/24 15:10 chlorpromazine AdvReac Unknown Verified 03/04/24 15:10 haloperidol [From Haldol] AdvReac Unknown Verified 03/04/24 15:10 trifluoperazine AdvReac Unknown Verified 03/04/24 15:10 Assessment & Plan Assessment & Plan (1) Schizoaffective disorder: Status: Acute Code(s): F25.9 - Schizoaffective disorder, unspecified Plan The patient is an elderly male with a past history of schizoaffective disorder on a very high dose of Risperdal noncompliant with medications who was brought after stopping eating for 5 days and noncompliance with antipsychotics for more than 30 days. At this moment currently psychotic. Plan 03/07 UA for fishy smell, refused risperidone 6mg due to color- he does have a beth's includes GASTELUM--> risperidone Consta 50mg IM every 2 weeks. 03/08 keep same treatment Reason for continued inpatient stay Substantial Risk for: inability to function, rapid decompensation and med/psych decompensation Time Spent With Patient Time: Total time managing care of this patient today __20__ minutes.
[2024-03-08 16:36] LABS: Glucose, Whole Blood 138 mg/dL (60-115)
[2024-03-08 19:56] LABS: Glucose, Whole Blood 132 mg/dL (60-115)
[2024-03-08 20:00] VITALS: BP 152/70; PULSE 80; RESP 16; TEMP 36.6; O2SAT 97
[2024-03-08] MEDS: Atorvastatin Calcium 20 MG TABLET 60 MG PO (21:06)
[2024-03-08] MEDS: traZODone HCL 50 MG TABLET PO (21:09)
[2024-03-08] MEDS: risperiDONE 2 MG TABLET 8 MG PO (21:15)
[2024-03-09 06:23] LABS: Glucose, Whole Blood 130 mg/dL (60-115)
[2024-03-09 08:39] VITALS: BP 143/69; PULSE 89; RESP 20; TEMP 36.6; O2SAT 96
[2024-03-09] MEDS: Fenofibrate 160 MG TABLET PO (08:41)
[2024-03-09] MEDS: Levothyroxine Sodium 88 MCG TABLET PO (08:41)
[2024-03-09] MEDS: Topiramate 100 MG TABLET PO ×2 (08:41→20:20)
[2024-03-09] MEDS: lisinopriL 2.5 MG TABLET PO (08:41)
[2024-03-09] MEDS: Sodium Chloride Tab 1 GM TABLET PO ×2 (08:41→20:20)
[2024-03-09] MEDS: Ibuprofen 800 MG TABLET PO (08:41)
[2024-03-09] MEDS: Cholecalciferol (Vitamin D3) 25 MCG TABLET PO (08:42)
[2024-03-09] MEDS: Cyanocobalamin (Vitamin B-12) 500 MCG TABLET PO (08:42)
[2024-03-09] MEDS: gemfibroziL 600 MG TABLET PO ×2 (08:42→20:18)
[2024-03-09] MEDS: Acetaminophen 325 MG TABLET 975 MG PO ×2 (08:43→20:19)
[2024-03-09 11:09] LABS: Glucose, Whole Blood 115 mg/dL (60-115)
[2024-03-09 16:15] LABS: Glucose, Whole Blood 151 mg/dL (60-115)
--- NOTE | 2024-03-09 18:33 | P.PNPSI_ITS ---
Subjective Subjective Date of Service: 03/09/24 Reason For Visit: SI Interim History: Met with patient; discussed with team Patient says he is fine. He has been refusing his Risperdal because he says he only takes white pills. When typewriter aligner met with him he said he thinks he does take Risperdal and that he will take Risperdal however when he learned it might not be a white pill, he hesitated and said he only takes white pills; however he repeatedly does take Risperdal. Patient asked the color of other pills as well Mental Status Exam Mental Status Exam Patient Appearance: Unkempt Patient Orientation: Person and Place Level of Consciousness: Awake and Appropriate Patient Behavior: Guarded, Passive and Good Eye Contact Mood Description: Constricted Affect Description: Constricted Patient Cognition Impaired: Yes Ability to Follow Directions: Good Speech Pattern: Clear Hallucinations: None Delusions: Paranoid Ideation Thought Process: Distracted and Slowed Thinking Thought Content: positive for [place] and positive for Poverty of Content Judgement: Poor Diagnostics Vital Signs (24Hr): Vital Signs - 24 hr 03/08/24 20:00 03/09/24 08:39 Temperature 98 F 98 F Pulse Rate 80 89 Respiratory Rate 16 20 Blood Pressure 152/70 H 143/69 H Pulse Oximetry 97 96 Oxygen Delivery Method Room Air Room Air BMI result Body Mass Index 25.0 Labs 03/04/24 15:31 03/06/24 08:02 Labs: Laboratory Results - last 48 hr 03/07/24 03/08/24 03/08/24 19:50 06:29 11:19 POC Glucose 107 120 H 126 H 03/08/24 03/08/24 03/09/24 16:31 19:51 06:14 POC Glucose 138 H 132 H 130 H 03/09/24 03/09/24 11:04 16:10 POC Glucose 115 151 H Medications Medications Current Medications Acetaminophen (Acetaminophen 325 Mg Tablet) 975 mg PO BID [facility] Last Admin: 03/09/24 08:43 Dose: 975 mg Al Hydroxide/Mg Hydroxide (Magnesium Hydrox/Alum Hydrox 30 Ml Oral.Susp) 30 ml PO Q6H PRN PRN Reason: Heartburn/Nausea Atorvastatin Calcium (Atorvastatin Calcium 20 Mg Tablet) 60 mg PO BEDTIME [facility] Last Admin: 03/08/24 21:06 Dose: 60 mg Benztropine Mesylate (Benztropine Mesylate 0.5 Mg Tablet) 0.5 mg PO BEDTIME PRN PRN Reason: secretions at bedtime Bisacodyl (Bisacodyl 10 Mg Supp.Rect) 10 mg AL DAILY PRN PRN Reason: Constipation Cyanocobalamin (Cyanocobalamin (Vitamin B-12) 500 Mcg Tablet) 500 mcg PO DAILY [facility] Last Admin: 03/09/24 08:42 Dose: 500 mcg Fenofibrate (Fenofibrate 160 Mg Tablet) 160 mg PO DAILY [facility] Last Admin: 03/09/24 08:41 Dose: 160 mg Gemfibrozil (Gemfibrozil 600 Mg Tablet) 600 mg PO BID [facility] Last Admin: 03/09/24 08:42 Dose: 600 mg Glucose (Glucose Gel 15 Gm Gel..Gram.) 15 gm PO Q15M PRN; Protocol PRN Reason: per Hypoglycemia Standing Ord. Guaifenesin (Guaifenesin 100 Mg/5 Ml Liquid) 10 ml PO Q12H PRN PRN Reason: Cough Hydroxyzine HCl (Hydroxyzine Hcl 25 Mg Tablet) 25 mg PO Q6H PRN PRN Reason: Anxiety Dextrose (D10) 250 mls @ 750 mls/hr IV Q15M PRN; Protocol PRN Reason: per Hypoglycemia Standing Ord. Ibuprofen (Ibuprofen 800 Mg Tablet) 800 mg PO DAILY [facility] Last Admin: 03/09/24 08:41 Dose: 800 mg Insulin Glargine (Insulin Glargine,Hum.Rec.Anlog 100 Unit/Ml 10 Ml Vial) 4 unit SUBCUT DAILY [facility] Last Admin: 03/09/24 09:29 Dose: Not Given Insulin Human Lispro (Insulin Lispro 100 Unit/Ml 3 Ml Vial) 0 unit SUBCUT QIDACHS [facility]; Protocol Last Admin: 03/09/24 16:55 Dose: Not Given Levothyroxine Sodium (Levothyroxine Sodium 88 Mcg Tablet) 88 mcg PO DAILY@0600 [facility] Last Admin: 03/09/24 08:41 Dose: 88 mcg Lisinopril (Lisinopril 2.5 Mg Tablet) 2.5 mg PO DAILY [facility]; Protocol Last Admin: 03/09/24 08:41 Dose: 2.5 mg Magnesium Hydroxide (Milk Of Magnesia 30 Ml Oral.Susp) 30 ml PO DAILY PRN PRN Reason: Constipation Magnesium Hydroxide (Milk Of Magnesia 30 Ml Oral.Susp) 30 ml PO DAILY PRN PRN Reason: Constipation Naloxone HCl (Naloxone Hcl 0.4 Mg/Ml Vial) 0.4 mg IM Q2M PRN PRN Reason: suspected opioid overdose Naloxone HCl (Naloxone Hcl Nasal 4 Mg [place]) 4 mg NOSTRILALT Q3M PRN PRN Reason: suspected opioid overdose Risperidone (Risperidone 3 Mg Tablet) 6 mg PO DAILY [facility] Last Admin: 03/09/24 08:43 Dose: Not Given Risperidone (Risperidone 2 Mg Tablet) 8 mg PO BEDTIME [facility] Last Admin: 03/08/24 21:15 Dose: 8 mg Sodium Biphosphate/Sodium Phosphate (Sodium Phosphate,[place]-Dibasic 133 Ml Enema) 118 ml AL DAILY PRN PRN Reason: if bisacodyl supp ineffective Sodium Chloride (Sodium Chloride Tab 1 Gm Tablet) 1 gm PO BID [facility] Last Admin: 03/09/24 08:41 Dose: 1 gm Topiramate (Topiramate 100 Mg Tablet) 100 mg PO BID [facility] Last Admin: 03/09/24 08:41 Dose: 100 mg Trazodone HCl (Trazodone Hcl 50 Mg Tablet) 50 mg PO BEDTIME MRX1 PRN PRN Reason: Insomnia Last Admin: 03/08/24 21:09 Dose: 50 mg Vitamin D (Cholecalciferol (Vitamin D3) 25 Mcg Tablet) 25 mcg PO DAILY [facility] Last Admin: 03/09/24 08:42 Dose: 25 mcg Allergies Allergies Allergy/AdvReac Type Severity Reaction Status Date / Time allopurinol AdvReac Unknown Verified 03/04/24 15:10 chlorpromazine AdvReac Unknown Verified 03/04/24 15:10 haloperidol [From Haldol] AdvReac Unknown Verified 03/04/24 15:10 trifluoperazine AdvReac Unknown Verified 03/04/24 15:10 Assessment & Plan Assessment & Plan (1) Schizoaffective disorder: Status: Acute Code(s): F25.9 - Schizoaffective disorder, unspecified Plan The patient is an elderly male with a past history of schizoaffective disorder on a very high dose of Risperdal noncompliant with medications who was brought after stopping eating for 5 days and noncompliance with antipsychotics for more than 30 days. At this moment currently psychotic. Plan 03/07 UA for fishy smell, refused risperidone 6mg due to color- he does have a beth's includes GASTELUM--> risperidone Consta 50mg IM every 2 weeks. 03/08 keep same treatment 03/09 Patient says he is fine. He has been refusing his Risperdal because he says he only takes white pills. When typewriter aligner met with him he said he thinks he does take Risperdal and that he will take Risperdal however when he learned it might not be a white pill, he hesitated and said he only takes white pills; however he repeatedly does take Risperdal. Patient asked the color of other pills as well -patient is on a community Latif -Risperdal Consta is an option on patient's community Latif; will defer to primary team whether not to administer (patient has been refusing p.o. Risperdal) Patient educated on: diagnosis and medication risk/benefits Informed Consent: does not understand Reason for continued inpatient stay Substantial Risk for: inability to function Time Spent With Patient Time: Total time managing care of this patient today ____ minutes.
--- NOTE | 2024-03-09 19:15 | P.EN_ITS ---
Event Note Date of Service: 03/09/24 Event Note: Patient is a 78 year old male with a PMH significant for insulin-dependent type 2 diabetes admitted to [facility] as a transfer from [facility] for refusing to eat and being noncompliant with medications. Hospitalist consult for insulin management. While on the unit pt has continued to refuse to eat and had significantly reduced p.o. intake. Has also been refusing his daily Lantus 4 units, which he says he takes at night. Blood sugars have been well controlled and under 200. Will hold Lantus for now while pt continues to refuse eating. Will consider resuming once pt begins consistent intake and sugars warrant the coverage. In the meantime sliding scale insulin coverage should be sufficient. Time Spent With Patient Time: Total time managing care of this patient today ____ minutes.
[2024-03-09 19:56] LABS: Glucose, Whole Blood 131 mg/dL (60-115)
[2024-03-09 20:00] VITALS: BP 142/67; PULSE 79; RESP 18; TEMP 36.5; O2SAT 98
[2024-03-09] MEDS: risperiDONE 1 MG TABLET 8 MG PO (20:16)
[2024-03-09] MEDS: Atorvastatin Calcium 20 MG TABLET 60 MG PO (20:19)
[2024-03-09] MEDS: hydrOXYzine HCL 25 MG TABLET PO (20:20)
[2024-03-09] MEDS: traZODone HCL 50 MG TABLET PO (20:20)
[2024-03-10] MEDS: Levothyroxine Sodium 88 MCG TABLET PO (06:20)
[2024-03-10 06:38] LABS: Glucose, Whole Blood 103 mg/dL (60-115)
[2024-03-10] MEDS: Sodium Chloride Tab 1 GM TABLET PO ×2 (08:39→20:33)
[2024-03-10] MEDS: Cyanocobalamin (Vitamin B-12) 500 MCG TABLET PO (08:39)
[2024-03-10] MEDS: gemfibroziL 600 MG TABLET PO ×2 (08:39→20:34)
[2024-03-10] MEDS: Cholecalciferol (Vitamin D3) 25 MCG TABLET PO (08:39)
[2024-03-10] MEDS: risperiDONE 1 MG TABLET 6 MG PO (08:39)
[2024-03-10 08:40] VITALS: BP 128/69; PULSE 81; RESP 18; TEMP 36.6; O2SAT 99
[2024-03-10] MEDS: Topiramate 100 MG TABLET PO ×2 (08:41→20:33)
[2024-03-10] MEDS: Fenofibrate 160 MG TABLET PO (08:41)
[2024-03-10] MEDS: Ibuprofen 800 MG TABLET PO (08:41)
[2024-03-10] MEDS: lisinopriL 2.5 MG TABLET PO (08:42)
[2024-03-10] MEDS: Acetaminophen 325 MG TABLET 975 MG PO ×2 (08:46→20:33)
[2024-03-10 11:19] LABS: Glucose, Whole Blood 96 mg/dL (60-115)
[2024-03-10 16:14] LABS: Glucose, Whole Blood 106 mg/dL (60-115)
--- NOTE | 2024-03-10 16:24 | HO.PSYCHPN ---
Subjective Subjective Date of Service: 03/10/24 Reason For Visit: SI Interim History: Met with patient; discussed with team Patient now taking Risperdal, white tablets which he tells business writer. Patient also says he wants the door open to sleep and business writer says nurses will be informed. Staff reports patient has some OCD symptoms, only wanting blue striped blankets on his bed, talked in a very certain way; will only eat breakfast if he has a full plate of eggs Mental Status Exam Mental Status Exam Patient Appearance: Unkempt Patient Orientation: Person and Place Level of Consciousness: Awake and Appropriate Patient Behavior: Guarded, Passive and Good Eye Contact Mood Description: Constricted Affect Description: Constricted Patient Cognition Impaired: Yes Ability to Follow Directions: Good Speech Pattern: Clear Hallucinations: None Delusions: Paranoid Ideation Thought Process: Distracted and Slowed Thinking Thought Content: positive for [place] and positive for Poverty of Content Judgement: Poor Diagnostics Vital Signs (24Hr): Vital Signs - 24 hr 03/09/24 20:00 03/10/24 08:40 Temperature 97.7 F 97.8 F Pulse Rate 79 81 Respiratory Rate 18 18 Blood Pressure 142/67 H 128/69 Pulse Oximetry 98 99 Oxygen Delivery Method Room Air Room Air BMI result Body Mass Index 25.0 Labs 03/04/24 15:31 03/06/24 08:02 Labs: Laboratory Results - last 48 hr 03/08/24 03/08/24 03/09/24 16:31 19:51 06:14 POC Glucose 138 H 132 H 130 H 03/09/24 03/09/24 03/09/24 11:04 16:10 19:47 POC Glucose 115 151 H 131 H 03/10/24 03/10/24 03/10/24 06:28 11:14 16:07 POC Glucose 103 96 106 Medications Medications Current Medications Acetaminophen (Acetaminophen 325 Mg Tablet) 975 mg PO BID [facility] Last Admin: 03/10/24 08:46 Dose: 975 mg Al Hydroxide/Mg Hydroxide (Magnesium Hydrox/Alum Hydrox 30 Ml Oral.Susp) 30 ml PO Q6H PRN PRN Reason: Heartburn/Nausea Atorvastatin Calcium (Atorvastatin Calcium 20 Mg Tablet) 60 mg PO BEDTIME [facility] Last Admin: 03/09/24 20:19 Dose: 60 mg Benztropine Mesylate (Benztropine Mesylate 0.5 Mg Tablet) 0.5 mg PO BEDTIME PRN PRN Reason: secretions at bedtime Bisacodyl (Bisacodyl 10 Mg Supp.Rect) 10 mg [place] DAILY PRN PRN Reason: Constipation Cyanocobalamin (Cyanocobalamin (Vitamin B-12) 500 Mcg Tablet) 500 mcg PO DAILY [facility] Last Admin: 03/10/24 08:39 Dose: 500 mcg Fenofibrate (Fenofibrate 160 Mg Tablet) 160 mg PO DAILY [facility] Last Admin: 03/10/24 08:41 Dose: 160 mg Gemfibrozil (Gemfibrozil 600 Mg Tablet) 600 mg PO BID [facility] Last Admin: 03/10/24 08:39 Dose: 600 mg Glucose (Glucose Gel 15 Gm Gel..Gram.) 15 gm PO Q15M PRN; Protocol PRN Reason: per Hypoglycemia Standing Ord. Guaifenesin (Guaifenesin 100 Mg/5 Ml Liquid) 10 ml PO Q12H PRN PRN Reason: Cough Hydroxyzine HCl (Hydroxyzine Hcl 25 Mg Tablet) 25 mg PO Q6H PRN PRN Reason: Anxiety Last Admin: 03/09/24 20:20 Dose: 25 mg Dextrose (D10) 250 mls @ 750 mls/hr IV Q15M PRN; Protocol PRN Reason: per Hypoglycemia Standing Ord. Ibuprofen (Ibuprofen 800 Mg Tablet) 800 mg PO DAILY [facility] Last Admin: 03/10/24 08:41 Dose: 800 mg Insulin Human Lispro (Insulin Lispro 100 Unit/Ml 3 Ml Vial) 0 unit SUBCUT QIDACHS [facility]; Protocol Last Admin: 03/10/24 14:08 Dose: Not Given Levothyroxine Sodium (Levothyroxine Sodium 88 Mcg Tablet) 88 mcg PO DAILY@0600 [facility] Last Admin: 03/10/24 06:20 Dose: 88 mcg Lisinopril (Lisinopril 2.5 Mg Tablet) 2.5 mg PO DAILY [facility]; Protocol Last Admin: 03/10/24 08:42 Dose: 2.5 mg Magnesium Hydroxide (Milk Of Magnesia 30 Ml Oral.Susp) 30 ml PO DAILY PRN PRN Reason: Constipation Magnesium Hydroxide (Milk Of Magnesia 30 Ml Oral.Susp) 30 ml PO DAILY PRN PRN Reason: Constipation Naloxone HCl (Naloxone Hcl 0.4 Mg/Ml Vial) 0.4 mg IM Q2M PRN PRN Reason: suspected opioid overdose Naloxone HCl (Naloxone Hcl Nasal 4 Mg [place]) 4 mg NOSTRILALT Q3M PRN PRN Reason: suspected opioid overdose Risperidone (Risperidone 1 Mg Tablet) 8 mg PO BEDTIME [facility] Last Admin: 03/09/24 20:16 Dose: 8 mg Risperidone (Risperidone 1 Mg Tablet) 6 mg PO DAILY [facility] Last Admin: 03/10/24 08:39 Dose: 6 mg Sodium Biphosphate/Sodium Phosphate (Sodium Phosphate,[place]-Dibasic 133 Ml Enema) 118 ml [place] DAILY PRN PRN Reason: if bisacodyl supp ineffective Sodium Chloride (Sodium Chloride Tab 1 Gm Tablet) 1 gm PO BID [facility] Last Admin: 03/10/24 08:39 Dose: 1 gm Topiramate (Topiramate 100 Mg Tablet) 100 mg PO BID [facility] Last Admin: 03/10/24 08:41 Dose: 100 mg Trazodone HCl (Trazodone Hcl 50 Mg Tablet) 50 mg PO BEDTIME MRX1 PRN PRN Reason: Insomnia Last Admin: 03/09/24 20:20 Dose: 50 mg Vitamin D (Cholecalciferol (Vitamin D3) 25 Mcg Tablet) 25 mcg PO DAILY [facility] Last Admin: 03/10/24 08:39 Dose: 25 mcg Allergies Allergies Allergy/AdvReac Type Severity Reaction Status Date / Time allopurinol AdvReac Unknown Verified 03/04/24 15:10 chlorpromazine AdvReac Unknown Verified 03/04/24 15:10 haloperidol [From Haldol] AdvReac Unknown Verified 03/04/24 15:10 trifluoperazine AdvReac Unknown Verified 03/04/24 15:10 Assessment & Plan Assessment & Plan (1) Schizoaffective disorder: Status: Acute Code(s): F25.9 - Schizoaffective disorder, unspecified Plan The patient is an elderly male with a past history of schizoaffective disorder on a very high dose of Risperdal noncompliant with medications who was brought after stopping eating for 5 days and noncompliance with antipsychotics for more than 30 days. At this moment currently psychotic. Plan 03/07 UA for fishy smell, refused risperidone 6mg due to color- he does have a beth's includes GASTELUM--> risperidone Consta 50mg IM every 2 weeks. 03/08 keep same treatment 03/09 Patient says he is fine. He has been refusing his Risperdal because he says he only takes white pills. When business writer met with him he said he thinks he does take Risperdal and that he will take Risperdal however when he learned it might not be a white pill, he hesitated and said he only takes white pills; however he repeatedly does take Risperdal. Patient asked the color of other pills as well -patient is on a community Latif 03/10 now taking Risperdal -Risperdal Consta is an option on patient's community Latif; will defer to primary team whether not to administer (patient has been refusing p.o. Risperdal) Patient educated on: diagnosis and medication risk/benefits Informed Consent: understands, does not understand and further education needed Reason for continued inpatient stay Substantial Risk for: inability to function Time Spent With Patient Time: Total time managing care of this patient today ____ minutes.
[2024-03-10 20:00] VITALS: BP 137/72; PULSE 67; RESP 18; TEMP 36.5; O2SAT 99
[2024-03-10 20:02] LABS: Glucose, Whole Blood 92 mg/dL (60-115)
[2024-03-10] MEDS: risperiDONE 1 MG TABLET 8 MG PO (20:31)
[2024-03-10] MEDS: Atorvastatin Calcium 20 MG TABLET 60 MG PO (20:33)
[2024-03-11] MEDS: Levothyroxine Sodium 88 MCG TABLET PO (05:45)
[2024-03-11 06:40] LABS: Glucose, Whole Blood 100 mg/dL (60-115)
[2024-03-11 07:55] VITALS: BP 122/69; PULSE 95; RESP 18; TEMP 36.4; O2SAT 99
[2024-03-11] MEDS: Ibuprofen 800 MG TABLET PO (08:22)
[2024-03-11] MEDS: Acetaminophen 325 MG TABLET 975 MG PO ×2 (08:22→20:43)
[2024-03-11] MEDS: risperiDONE 1 MG TABLET 6 MG PO (08:23)
[2024-03-11] MEDS: Topiramate 100 MG TABLET PO ×2 (08:23→20:44)
[2024-03-11] MEDS: lisinopriL 2.5 MG TABLET PO (08:23)
[2024-03-11] MEDS: Sodium Chloride Tab 1 GM TABLET PO ×2 (08:23→20:43)
[2024-03-11] MEDS: Fenofibrate 160 MG TABLET PO (08:23)
[2024-03-11] MEDS: Cholecalciferol (Vitamin D3) 25 MCG TABLET PO (08:23)
[2024-03-11] MEDS: gemfibroziL 600 MG TABLET PO ×2 (08:23→20:44)
[2024-03-11] MEDS: Cyanocobalamin (Vitamin B-12) 500 MCG TABLET PO (08:23)
[2024-03-11 11:36] LABS: Glucose, Whole Blood 100 mg/dL (60-115)
--- NOTE | 2024-03-11 15:32 | HO.PSYCHPN ---
Subjective Subjective Date of Service: 03/11/24 Reason For Visit: SI Subjective Notes: Conditional Voluntary Interim History: The nursing staff reported the patient had been compliant with his treatment. He has been walking without assistance. On interview, I offered him if he wants to have Invega Johnna Huff and he wants only to take his medication. Pleasant with a brighter affect slept well. Mental Status Exam Mental Status Exam Patient Appearance: Unkempt Patient Orientation: Person and Situation Level of Consciousness: Awake and Appropriate Patient Behavior: Guarded and Passive Mood Description: Withdrawn Affect Description: Constricted Patient Cognition Impaired: Yes Ability to Follow Directions: Good Speech Pattern: Clear Hallucinations: None Delusions: Paranoid Ideation and Ideas of Reference Thought Process: Distracted and Slowed Thinking Thought Content: positive for [place], positive for [place], positive for Poverty of Content and positive for Thought Blocking Judgement: Poor Diagnostics Vital Signs (24Hr): Vital Signs - 24 hr 03/10/24 20:00 03/11/24 07:55 Temperature 97.7 F 97.6 F Pulse Rate 67 95 Respiratory Rate 18 18 Blood Pressure 137/72 122/69 Pulse Oximetry 99 99 Oxygen Delivery Method Room Air Room Air BMI result Body Mass Index 25.0 Labs 03/04/24 15:31 03/06/24 08:02 Labs: Laboratory Results - last 48 hr 03/09/24 03/09/24 03/10/24 16:10 19:47 06:28 POC Glucose 151 H 131 H 103 03/10/24 03/10/24 03/10/24 11:14 16:07 19:58 POC Glucose 96 106 92 03/11/24 03/11/24 06:33 11:32 POC Glucose 100 100 Medications Medications Current Medications Acetaminophen (Acetaminophen 325 Mg Tablet) 975 mg PO BID [facility] Last Admin: 03/11/24 08:22 Dose: 975 mg Al Hydroxide/Mg Hydroxide (Magnesium Hydrox/Alum Hydrox 30 Ml Oral.Susp) 30 ml PO Q6H PRN PRN Reason: Heartburn/Nausea Atorvastatin Calcium (Atorvastatin Calcium 20 Mg Tablet) 60 mg PO BEDTIME [facility] Last Admin: 03/10/24 20:33 Dose: 60 mg Benztropine Mesylate (Benztropine Mesylate 0.5 Mg Tablet) 0.5 mg PO BEDTIME PRN PRN Reason: secretions at bedtime Bisacodyl (Bisacodyl 10 Mg Supp.Rect) 10 mg [place] DAILY PRN PRN Reason: Constipation Cyanocobalamin (Cyanocobalamin (Vitamin B-12) 500 Mcg Tablet) 500 mcg PO DAILY [facility] Last Admin: 03/11/24 08:23 Dose: 500 mcg Fenofibrate (Fenofibrate 160 Mg Tablet) 160 mg PO DAILY [facility] Last Admin: 03/11/24 08:23 Dose: 160 mg Gemfibrozil (Gemfibrozil 600 Mg Tablet) 600 mg PO BID [facility] Last Admin: 03/11/24 08:23 Dose: 600 mg Glucose (Glucose Gel 15 Gm Gel..Gram.) 15 gm PO Q15M PRN; Protocol PRN Reason: per Hypoglycemia Standing Ord. Guaifenesin (Guaifenesin 100 Mg/5 Ml Liquid) 10 ml PO Q12H PRN PRN Reason: Cough Hydroxyzine HCl (Hydroxyzine Hcl 25 Mg Tablet) 25 mg PO Q6H PRN PRN Reason: Anxiety Last Admin: 03/09/24 20:20 Dose: 25 mg Dextrose (D10) 250 mls @ 750 mls/hr IV Q15M PRN; Protocol PRN Reason: per Hypoglycemia Standing Ord. Ibuprofen (Ibuprofen 800 Mg Tablet) 800 mg PO DAILY [facility] Last Admin: 03/11/24 08:22 Dose: 800 mg Insulin Human Lispro (Insulin Lispro 100 Unit/Ml 3 Ml Vial) 0 unit SUBCUT QIDACHS [facility]; Protocol Last Admin: 03/11/24 13:38 Dose: Not Given Levothyroxine Sodium (Levothyroxine Sodium 88 Mcg Tablet) 88 mcg PO DAILY@0600 [facility] Last Admin: 03/11/24 05:45 Dose: 88 mcg Lisinopril (Lisinopril 2.5 Mg Tablet) 2.5 mg PO DAILY [facility]; Protocol Last Admin: 03/11/24 08:23 Dose: 2.5 mg Magnesium Hydroxide (Milk Of Magnesia 30 Ml Oral.Susp) 30 ml PO DAILY PRN PRN Reason: Constipation Magnesium Hydroxide (Milk Of Magnesia 30 Ml Oral.Susp) 30 ml PO DAILY PRN PRN Reason: Constipation Naloxone HCl (Naloxone Hcl 0.4 Mg/Ml Vial) 0.4 mg IM Q2M PRN PRN Reason: suspected opioid overdose Naloxone HCl (Naloxone Hcl Nasal 4 Mg [place]) 4 mg NOSTRILALT Q3M PRN PRN Reason: suspected opioid overdose Risperidone (Risperidone 1 Mg Tablet) 8 mg PO BEDTIME [facility] Last Admin: 03/10/24 20:31 Dose: 8 mg Risperidone (Risperidone 1 Mg Tablet) 6 mg PO DAILY [facility] Last Admin: 03/11/24 08:23 Dose: 6 mg Sodium Biphosphate/Sodium Phosphate (Sodium Phosphate,[place]-Dibasic 133 Ml Enema) 118 ml [place] DAILY PRN PRN Reason: if bisacodyl supp ineffective Sodium Chloride (Sodium Chloride Tab 1 Gm Tablet) 1 gm PO BID [facility] Last Admin: 03/11/24 08:23 Dose: 1 gm Topiramate (Topiramate 100 Mg Tablet) 100 mg PO BID [facility] Last Admin: 03/11/24 08:23 Dose: 100 mg Trazodone HCl (Trazodone Hcl 50 Mg Tablet) 50 mg PO BEDTIME MRX1 PRN PRN Reason: Insomnia Last Admin: 03/09/24 20:20 Dose: 50 mg Vitamin D (Cholecalciferol (Vitamin D3) 25 Mcg Tablet) 25 mcg PO DAILY [facility] Last Admin: 03/11/24 08:23 Dose: 25 mcg Allergies Allergies Allergy/AdvReac Type Severity Reaction Status Date / Time allopurinol AdvReac Unknown Verified 03/04/24 15:10 chlorpromazine AdvReac Unknown Verified 03/04/24 15:10 haloperidol [From Haldol] AdvReac Unknown Verified 03/04/24 15:10 trifluoperazine AdvReac Unknown Verified 03/04/24 15:10 Assessment & Plan Assessment & Plan (1) Schizoaffective disorder: Status: Acute Code(s): F25.9 - Schizoaffective disorder, unspecified Plan The patient is an elderly male with a past history of schizoaffective disorder on a very high dose of Risperdal noncompliant with medications who was brought after stopping eating for 5 days and noncompliance with antipsychotics for more than 30 days. At this moment currently psychotic. Plan 03/07 UA for fishy smell, refused risperidone 6mg due to color- he does have a beth's includes GASTELUM--> risperidone Consta 50mg IM every 2 weeks. 03/08 keep same treatment 03/09 Patient says he is fine. He has been refusing his Risperdal because he says he only takes white pills. When publicity writer met with him he said he thinks he does take Risperdal and that he will take Risperdal however when he learned it might not be a white pill, he hesitated and said he only takes white pills; however he repeatedly does take Risperdal. Patient asked the color of other pills as well -patient is on a community Latif -Risperdal Consta is an option on patient's community Latif; will defer to primary team whether not to administer (patient has been refusing p.o. Risperdal) 03/11 continue same treatment Reason for continued inpatient stay Substantial Risk for: inability to function, rapid decompensation and med/psych decompensation Time Spent With Patient Time: Total time managing care of this patient today __20__ minutes.
[2024-03-11 16:37] LABS: Glucose, Whole Blood 106 mg/dL (60-115)
[2024-03-11 20:00] VITALS: BP 148/65; PULSE 96; RESP 18; TEMP 36.2; O2SAT 97
[2024-03-11 20:11] LABS: Glucose, Whole Blood 136 mg/dL (60-115)
[2024-03-11] MEDS: risperiDONE 1 MG TABLET 8 MG PO (20:41)
[2024-03-11] MEDS: Atorvastatin Calcium 20 MG TABLET 60 MG PO (20:43)
[2024-03-12] MEDS: Milk of Magnesia 30 ML ORAL.SUSP PO (01:52)
[2024-03-12] MEDS: hydrOXYzine HCL 25 MG TABLET PO (02:01)
[2024-03-12] MEDS: Levothyroxine Sodium 88 MCG TABLET PO (06:41)
[2024-03-12 06:47] LABS: Glucose, Whole Blood 120 mg/dL (60-115)
[2024-03-12 08:14] VITALS: BP 133/62; PULSE 95; RESP 17; TEMP 36.6; O2SAT 97
[2024-03-12] MEDS: Cholecalciferol (Vitamin D3) 25 MCG TABLET PO (08:16)
[2024-03-12] MEDS: Cyanocobalamin (Vitamin B-12) 500 MCG TABLET PO (08:16)
[2024-03-12] MEDS: Topiramate 100 MG TABLET PO ×2 (08:16→20:45)
[2024-03-12] MEDS: Fenofibrate 160 MG TABLET PO (08:16)
[2024-03-12] MEDS: lisinopriL 2.5 MG TABLET PO (08:16)
[2024-03-12] MEDS: risperiDONE 1 MG TABLET 6 MG PO (08:16)
[2024-03-12] MEDS: Acetaminophen 325 MG TABLET 975 MG PO ×2 (08:17→20:44)
[2024-03-12] MEDS: Sodium Chloride Tab 1 GM TABLET PO ×2 (08:17→20:45)
[2024-03-12] MEDS: gemfibroziL 600 MG TABLET PO ×2 (08:17→20:44)
[2024-03-12] MEDS: Ibuprofen 800 MG TABLET PO (08:17)
[2024-03-12 11:21] LABS: Glucose, Whole Blood 94 mg/dL (60-115)
--- NOTE | 2024-03-12 15:13 | P.PNPSI_ITS ---
Subjective Subjective Date of Service: 03/12/24 Reason For Visit: SI Subjective Notes: Conditional Voluntary Interim History: The nursing staff reported the patient had been compliant with treatment. He stated that he is too weak to walk but he has been seen walking without problems. The social work faculty member tried to call his guardian when so far we did not have any information. On interview the patient reports that he is doing fine compliant with his medications. He refused the use of long-acting injectable at this point. Mental Status Exam Mental Status Exam Patient Appearance: Well Grooomed and Appropriate Patient Orientation: Person and Situation Level of Consciousness: Awake and Appropriate Patient Behavior: Guarded and Passive Mood Description: Withdrawn Affect Description: Constricted Patient Cognition Impaired: Yes Ability to Follow Directions: Good Speech Pattern: Clear Hallucinations: None Delusions: Not Present Thought Process: Distracted Thought Content: positive for [place] and positive for Poverty of Content Judgement: Fair Diagnostics Vital Signs (24Hr): Vital Signs - 24 hr 03/11/24 20:00 03/12/24 08:14 Temperature 97.2 F 97.9 F Pulse Rate 96 95 Respiratory Rate 18 17 Blood Pressure 148/65 H 133/62 Pulse Oximetry 97 97 Oxygen Delivery Method Room Air Room Air BMI result Body Mass Index 25.0 Labs 03/04/24 15:31 03/06/24 08:02 Labs: Laboratory Results - last 48 hr 03/10/24 03/10/24 03/11/24 16:07 19:58 06:33 POC Glucose 106 92 100 03/11/24 03/11/24 03/11/24 11:32 16:33 20:05 POC Glucose 100 106 136 H 03/12/24 03/12/24 06:39 11:13 POC Glucose 120 H 94 Medications Medications Current Medications Acetaminophen (Acetaminophen 325 Mg Tablet) 975 mg PO BID [facility] Last Admin: 03/12/24 08:17 Dose: 975 mg Al Hydroxide/Mg Hydroxide (Magnesium Hydrox/Alum Hydrox 30 Ml Oral.Susp) 30 ml PO Q6H PRN PRN Reason: Heartburn/Nausea Atorvastatin Calcium (Atorvastatin Calcium 20 Mg Tablet) 60 mg PO BEDTIME [facility] Last Admin: 03/11/24 20:43 Dose: 60 mg Benztropine Mesylate (Benztropine Mesylate 0.5 Mg Tablet) 0.5 mg PO BEDTIME PRN PRN Reason: secretions at bedtime Bisacodyl (Bisacodyl 10 Mg Supp.Rect) 10 mg [place] DAILY PRN PRN Reason: Constipation Cyanocobalamin (Cyanocobalamin (Vitamin B-12) 500 Mcg Tablet) 500 mcg PO DAILY [facility] Last Admin: 03/12/24 08:16 Dose: 500 mcg Fenofibrate (Fenofibrate 160 Mg Tablet) 160 mg PO DAILY [facility] Last Admin: 03/12/24 08:16 Dose: 160 mg Gemfibrozil (Gemfibrozil 600 Mg Tablet) 600 mg PO BID [facility] Last Admin: 03/12/24 08:17 Dose: 600 mg Glucose (Glucose Gel 15 Gm Gel..Gram.) 15 gm PO Q15M PRN; Protocol PRN Reason: per Hypoglycemia Standing Ord. Guaifenesin (Guaifenesin 100 Mg/5 Ml Liquid) 10 ml PO Q12H PRN PRN Reason: Cough Hydroxyzine HCl (Hydroxyzine Hcl 25 Mg Tablet) 25 mg PO Q6H PRN PRN Reason: Anxiety Last Admin: 03/12/24 02:01 Dose: 25 mg Dextrose (D10) 250 mls @ 750 mls/hr IV Q15M PRN; Protocol PRN Reason: per Hypoglycemia Standing Ord. Ibuprofen (Ibuprofen 800 Mg Tablet) 800 mg PO DAILY [facility] Last Admin: 03/12/24 08:17 Dose: 800 mg Insulin Human Lispro (Insulin Lispro 100 Unit/Ml 3 Ml Vial) 0 unit SUBCUT QIDACHS [facility]; Protocol Last Admin: 03/12/24 11:25 Dose: Not Given Levothyroxine Sodium (Levothyroxine Sodium 88 Mcg Tablet) 88 mcg PO DAILY@0600 [facility] Last Admin: 03/12/24 06:41 Dose: 88 mcg Lisinopril (Lisinopril 2.5 Mg Tablet) 2.5 mg PO DAILY [facility]; Protocol Last Admin: 03/12/24 08:16 Dose: 2.5 mg Magnesium Hydroxide (Milk Of Magnesia 30 Ml Oral.Susp) 30 ml PO DAILY PRN PRN Reason: Constipation Last Admin: 03/12/24 01:52 Dose: 30 ml Magnesium Hydroxide (Milk Of Magnesia 30 Ml Oral.Susp) 30 ml PO DAILY PRN PRN Reason: Constipation Naloxone HCl (Naloxone Hcl 0.4 Mg/Ml Vial) 0.4 mg IM Q2M PRN PRN Reason: suspected opioid overdose Naloxone HCl (Naloxone Hcl Nasal 4 Mg [place]) 4 mg NOSTRILALT Q3M PRN PRN Reason: suspected opioid overdose Risperidone (Risperidone 1 Mg Tablet) 8 mg PO BEDTIME [facility] Last Admin: 03/11/24 20:41 Dose: 8 mg Risperidone (Risperidone 1 Mg Tablet) 6 mg PO DAILY [facility] Last Admin: 03/12/24 08:16 Dose: 6 mg Sodium Biphosphate/Sodium Phosphate (Sodium Phosphate,[place]-Dibasic 133 Ml Enema) 118 ml [place] DAILY PRN PRN Reason: if bisacodyl supp ineffective Sodium Chloride (Sodium Chloride Tab 1 Gm Tablet) 1 gm PO BID [facility] Last Admin: 03/12/24 08:17 Dose: 1 gm Topiramate (Topiramate 100 Mg Tablet) 100 mg PO BID [facility] Last Admin: 03/12/24 08:16 Dose: 100 mg Trazodone HCl (Trazodone Hcl 50 Mg Tablet) 50 mg PO BEDTIME MRX1 PRN PRN Reason: Insomnia Last Admin: 03/09/24 20:20 Dose: 50 mg Vitamin D (Cholecalciferol (Vitamin D3) 25 Mcg Tablet) 25 mcg PO DAILY [facility] Last Admin: 03/12/24 08:16 Dose: 25 mcg Allergies Allergies Allergy/AdvReac Type Severity Reaction Status Date / Time allopurinol AdvReac Unknown Verified 03/04/24 15:10 chlorpromazine AdvReac Unknown Verified 03/04/24 15:10 haloperidol [From Haldol] AdvReac Unknown Verified 03/04/24 15:10 trifluoperazine AdvReac Unknown Verified 03/04/24 15:10 Assessment & Plan Assessment & Plan (1) Schizoaffective disorder: Status: Acute Code(s): F25.9 - Schizoaffective disorder, unspecified Plan The patient is an elderly male with a past history of schizoaffective disorder on a very high dose of Risperdal noncompliant with medications who was brought after stopping eating for 5 days and noncompliance with antipsychotics for more than 30 days. At this moment currently psychotic. Plan 03/07 UA for fishy smell, refused risperidone 6mg due to color- he does have a beth's includes GASTELUM--> risperidone Consta 50mg IM every 2 weeks. 03/08 keep same treatment 03/09 Patient says he is fine. He has been refusing his Risperdal because he says he only takes white pills. When physician underwriter met with him he said he thinks he does take Risperdal and that he will take Risperdal however when he learned it might not be a white pill, he hesitated and said he only takes white pills; however he repeatedly does take Risperdal. Patient asked the color of other pills as well -patient is on a community Latif -Risperdal Consta is an option on patient's community Latif; will defer to primary team whether not to administer (patient has been refusing p.o. Risperdal) 03/11 continue same treatment 03/12 continue same tx Reason for continued inpatient stay Substantial Risk for: inability to function, rapid decompensation and med/psych decompensation Time Spent With Patient Time: Total time managing care of this patient today __20__ minutes.
[2024-03-12 16:16] LABS: Glucose, Whole Blood 119 mg/dL (60-115)
[2024-03-12 20:00] VITALS: BP 115/61; PULSE 88; RESP 16; TEMP 36.4; O2SAT 99
[2024-03-12] MEDS: risperiDONE 1 MG TABLET 8 MG PO (20:41)
[2024-03-12] MEDS: Atorvastatin Calcium 20 MG TABLET 60 MG PO (20:45)
[2024-03-12] MEDS: Insulin Lispro 100 UNIT/ML 3 ML VIAL SUBCUT (20:54)
[2024-03-12 20:55] LABS: Glucose, Whole Blood 155 mg/dL (60-115)
[2024-03-13] MEDS: Levothyroxine Sodium 88 MCG TABLET PO (06:29)
[2024-03-13 06:36] LABS: Glucose, Whole Blood 128 mg/dL (60-115)
[2024-03-13 07:50] VITALS: BP 137/63; PULSE 118; RESP 17; TEMP 36.6; O2SAT 97
[2024-03-13 08:06] VITALS: BP 137/63
[2024-03-13] MEDS: lisinopriL 2.5 MG TABLET PO (08:06)
[2024-03-13] MEDS: Cyanocobalamin (Vitamin B-12) 500 MCG TABLET PO (08:06)
[2024-03-13] MEDS: risperiDONE 1 MG TABLET 6 MG PO (08:06)
[2024-03-13] MEDS: Cholecalciferol (Vitamin D3) 25 MCG TABLET PO (08:07)
[2024-03-13] MEDS: gemfibroziL 600 MG TABLET PO ×2 (08:07→20:40)
[2024-03-13] MEDS: Acetaminophen 325 MG TABLET 975 MG PO ×2 (08:07→20:36)
[2024-03-13] MEDS: Sodium Chloride Tab 1 GM TABLET PO ×2 (08:07→20:36)
[2024-03-13] MEDS: Fenofibrate 160 MG TABLET PO (08:07)
[2024-03-13] MEDS: Ibuprofen 800 MG TABLET PO (08:07)
[2024-03-13] MEDS: Topiramate 100 MG TABLET PO ×2 (08:07→20:40)
[2024-03-13 11:09] LABS: Glucose, Whole Blood 125 mg/dL (60-115)
--- NOTE | 2024-03-13 12:01 | MHC.CLN ---
NUTRITION DIET=REGULAR. INTAKE MOST MEALS 100%. REQUESTS AND RECEIVES LARGE PORTIONS. DISLIKES IF FOODS TOUCH BUT DOES NOT WANT SEPARATE PLATES. CONTINUE TO PROVIDE FOOD PREFERENCES/REQUESTS ABLE.
--- NOTE | 2024-03-13 15:22 | HO.PSYCHPN ---
Subjective Subjective Date of Service: 03/13/24 Reason For Visit: SI Subjective Notes: Conditional Voluntary Interim History: The nursing staff reported the patient had been compliant with treatment, attention seeking at times but easily redirectable. Having talkative and he slept well. The social studies department chair reported that they try to contact the guardian but so far he has not contact back. Supposed to go back to [facility]. On interview the patient denies new symptoms. Later on the social studies department chair talk with him and he does not want to go back to [facility]. Mental Status Exam Mental Status Exam Patient Appearance: Appropriate Patient Orientation: Person and Situation Level of Consciousness: Awake Patient Behavior: Passive Mood Description: Withdrawn Affect Description: Constricted Patient Cognition Impaired: Yes Ability to Follow Directions: Good Speech Pattern: Clear Hallucinations: None Delusions: Ideas of Reference Thought Process: Distracted and Slowed Thinking Thought Content: positive for [place] and positive for Poverty of Content Judgement: Poor Diagnostics Vital Signs (24Hr): Vital Signs - 24 hr 03/12/24 20:00 03/13/24 07:50 03/13/24 08:06 Temperature 97.5 F 97.9 F Pulse Rate 88 118 H Respiratory Rate 16 17 Blood Pressure 115/61 137/63 137/63 Pulse Oximetry 99 97 Oxygen Delivery Method Room Air Room Air BMI result Body Mass Index 25.0 Labs 03/04/24 15:31 03/06/24 08:02 Labs: Laboratory Results - last 48 hr 03/11/24 03/11/24 03/12/24 16:33 20:05 06:39 POC Glucose 106 136 H 120 H 03/12/24 03/12/24 03/12/24 11:13 16:11 20:39 POC Glucose 94 119 H 155 H 03/13/24 03/13/24 06:28 11:04 POC Glucose 128 H 125 H Medications Medications Current Medications Acetaminophen (Acetaminophen 325 Mg Tablet) 975 mg PO BID [facility] Last Admin: 03/13/24 08:07 Dose: 975 mg Al Hydroxide/Mg Hydroxide (Magnesium Hydrox/Alum Hydrox 30 Ml Oral.Susp) 30 ml PO Q6H PRN PRN Reason: Heartburn/Nausea Atorvastatin Calcium (Atorvastatin Calcium 20 Mg Tablet) 60 mg PO BEDTIME [facility] Last Admin: 03/12/24 20:45 Dose: 60 mg Benztropine Mesylate (Benztropine Mesylate 0.5 Mg Tablet) 0.5 mg PO BEDTIME PRN PRN Reason: secretions at bedtime Bisacodyl (Bisacodyl 10 Mg Supp.Rect) 10 mg [place] DAILY PRN PRN Reason: Constipation Cyanocobalamin (Cyanocobalamin (Vitamin B-12) 500 Mcg Tablet) 500 mcg PO DAILY [facility] Last Admin: 03/13/24 08:06 Dose: 500 mcg Fenofibrate (Fenofibrate 160 Mg Tablet) 160 mg PO DAILY [facility] Last Admin: 03/13/24 08:07 Dose: 160 mg Gemfibrozil (Gemfibrozil 600 Mg Tablet) 600 mg PO BID [facility] Last Admin: 03/13/24 08:07 Dose: 600 mg Glucose (Glucose Gel 15 Gm Gel..Gram.) 15 gm PO Q15M PRN; Protocol PRN Reason: per Hypoglycemia Standing Ord. Guaifenesin (Guaifenesin 100 Mg/5 Ml Liquid) 10 ml PO Q12H PRN PRN Reason: Cough Hydroxyzine HCl (Hydroxyzine Hcl 25 Mg Tablet) 25 mg PO Q6H PRN PRN Reason: Anxiety Last Admin: 03/12/24 02:01 Dose: 25 mg Dextrose (D10) 250 mls @ 750 mls/hr IV Q15M PRN; Protocol PRN Reason: per Hypoglycemia Standing Ord. Ibuprofen (Ibuprofen 800 Mg Tablet) 800 mg PO DAILY [facility] Last Admin: 03/13/24 08:07 Dose: 800 mg Insulin Human Lispro (Insulin Lispro 100 Unit/Ml 3 Ml Vial) 0 unit SUBCUT QIDACHS [facility]; Protocol Last Admin: 03/13/24 11:10 Dose: Not Given Levothyroxine Sodium (Levothyroxine Sodium 88 Mcg Tablet) 88 mcg PO DAILY@0600 [facility] Last Admin: 03/13/24 06:29 Dose: 88 mcg Lisinopril (Lisinopril 2.5 Mg Tablet) 2.5 mg PO DAILY [facility]; Protocol Last Admin: 03/13/24 08:06 Dose: 2.5 mg Magnesium Hydroxide (Milk Of Magnesia 30 Ml Oral.Susp) 30 ml PO DAILY PRN PRN Reason: Constipation Last Admin: 03/12/24 01:52 Dose: 30 ml Magnesium Hydroxide (Milk Of Magnesia 30 Ml Oral.Susp) 30 ml PO DAILY PRN PRN Reason: Constipation Naloxone HCl (Naloxone Hcl 0.4 Mg/Ml Vial) 0.4 mg IM Q2M PRN PRN Reason: suspected opioid overdose Naloxone HCl (Naloxone Hcl Nasal 4 Mg [place]) 4 mg NOSTRILALT Q3M PRN PRN Reason: suspected opioid overdose Risperidone (Risperidone 1 Mg Tablet) 8 mg PO BEDTIME [facility] Last Admin: 03/12/24 20:41 Dose: 8 mg Risperidone (Risperidone 1 Mg Tablet) 6 mg PO DAILY [facility] Last Admin: 03/13/24 08:06 Dose: 6 mg Sodium Biphosphate/Sodium Phosphate (Sodium Phosphate,[place]-Dibasic 133 Ml Enema) 118 ml [place] DAILY PRN PRN Reason: if bisacodyl supp ineffective Sodium Chloride (Sodium Chloride Tab 1 Gm Tablet) 1 gm PO BID [facility] Last Admin: 03/13/24 08:07 Dose: 1 gm Topiramate (Topiramate 100 Mg Tablet) 100 mg PO BID [facility] Last Admin: 03/13/24 08:07 Dose: 100 mg Trazodone HCl (Trazodone Hcl 50 Mg Tablet) 50 mg PO BEDTIME MRX1 PRN PRN Reason: Insomnia Last Admin: 03/09/24 20:20 Dose: 50 mg Vitamin D (Cholecalciferol (Vitamin D3) 25 Mcg Tablet) 25 mcg PO DAILY [facility] Last Admin: 03/13/24 08:07 Dose: 25 mcg Allergies Allergies Allergy/AdvReac Type Severity Reaction Status Date / Time allopurinol AdvReac Unknown Verified 03/04/24 15:10 chlorpromazine AdvReac Unknown Verified 03/04/24 15:10 haloperidol [From Haldol] AdvReac Unknown Verified 03/04/24 15:10 trifluoperazine AdvReac Unknown Verified 03/04/24 15:10 Assessment & Plan Assessment & Plan (1) Schizoaffective disorder: Status: Acute Code(s): F25.9 - Schizoaffective disorder, unspecified Plan The patient is an elderly male with a past history of schizoaffective disorder on a very high dose of Risperdal noncompliant with medications who was brought after stopping eating for 5 days and noncompliance with antipsychotics for more than 30 days. At this moment currently psychotic. Plan 03/07 UA for fishy smell, refused risperidone 6mg due to color- he does have a beth's includes GASTELUM--> risperidone Consta 50mg IM every 2 weeks. 03/08 keep same treatment 03/09 Patient says he is fine. He has been refusing his Risperdal because he says he only takes white pills. When sheet writer met with him he said he thinks he does take Risperdal and that he will take Risperdal however when he learned it might not be a white pill, he hesitated and said he only takes white pills; however he repeatedly does take Risperdal. Patient asked the color of other pills as well -patient is on a community Latif -Risperdal Consta is an option on patient's community Latif; will defer to primary team whether not to administer (patient has been refusing p.o. Risperdal) 03/11 continue same treatment 03/12 continue same tx 03/13 continue same treatment Reason for continued inpatient stay Substantial Risk for: inability to function, rapid decompensation and med/psych decompensation Time Spent With Patient Time: Total time managing care of this patient today _20___ minutes.
[2024-03-13 16:09] LABS: Glucose, Whole Blood 156 mg/dL (60-115)
[2024-03-13] MEDS: Insulin Lispro 100 UNIT/ML 3 ML VIAL SUBCUT (16:19)
[2024-03-13 20:00] VITALS: BP 146/67; PULSE 90; TEMP 36.6; O2SAT 96
[2024-03-13 20:03] LABS: Glucose, Whole Blood 123 mg/dL (60-115)
[2024-03-13] MEDS: risperiDONE 1 MG TABLET 8 MG PO (20:34)
[2024-03-13] MEDS: Atorvastatin Calcium 20 MG TABLET 60 MG PO (20:36)
[2024-03-14] MEDS: Levothyroxine Sodium 88 MCG TABLET PO (06:00)
[2024-03-14 06:28] LABS: Glucose, Whole Blood 133 mg/dL (60-115)
[2024-03-14 07:00] VITALS: BMI 26.0
[2024-03-14 07:55] VITALS: BP 156/71; PULSE 112; RESP 18; TEMP 36.8
[2024-03-14] MEDS: Acetaminophen 325 MG TABLET 975 MG PO ×2 (08:08→20:37)
[2024-03-14] MEDS: risperiDONE 1 MG TABLET 6 MG PO (08:08)
[2024-03-14] MEDS: Cholecalciferol (Vitamin D3) 25 MCG TABLET PO (08:08)
[2024-03-14] MEDS: Fenofibrate 160 MG TABLET PO (08:09)
[2024-03-14] MEDS: Ibuprofen 800 MG TABLET PO (08:09)
[2024-03-14] MEDS: Cyanocobalamin (Vitamin B-12) 500 MCG TABLET PO (08:09)
[2024-03-14] MEDS: Topiramate 100 MG TABLET PO ×2 (08:09→20:36)
[2024-03-14] MEDS: lisinopriL 2.5 MG TABLET PO (08:09)
[2024-03-14] MEDS: gemfibroziL 600 MG TABLET PO ×2 (08:09→20:36)
[2024-03-14] MEDS: Sodium Chloride Tab 1 GM TABLET PO ×2 (08:09→20:36)
[2024-03-14 11:27] LABS: Glucose, Whole Blood 119 mg/dL (60-115)
--- NOTE | 2024-03-14 15:36 | P.PNPSI_ITS ---
Subjective Subjective Date of Service: 03/14/24 Reason For Visit: SI Subjective Notes: Conditional Voluntary Interim History: The nursing staff reported the patient had been compliant with treatment, he reports that he is happy to be discharged back to [facility], even though that a few days ago he did not want to go back. Today I contact the clinical coordinator and they were demanding to put him on a long-acting injectable. I explained to the nurse practitioner admission care that the role years order only authorized a very low dose of long-acting injectables that will not be appropriate for him. His discharge tomorrow Mental Status Exam Mental Status Exam Patient Appearance: Well Grooomed Patient Orientation: Person and Situation Level of Consciousness: Awake and Appropriate Patient Behavior: Guarded and Passive Mood Description: Withdrawn Affect Description: Constricted Patient Cognition Impaired: Yes Ability to Follow Directions: Good Speech Pattern: Clear Hallucinations: None Delusions: Paranoid Ideation and Ideas of Reference Thought Process: Distracted and Slowed Thinking Thought Content: positive for [place] and positive for Poverty of Content Judgement: Poor Diagnostics Vital Signs (24Hr): Vital Signs - 24 hr 03/13/24 20:00 03/14/24 07:55 Temperature 97.8 F 98.2 F Pulse Rate 90 112 H Respiratory Rate 18 Blood Pressure 146/67 H 156/71 H Pulse Oximetry 96 Oxygen Delivery Method Room Air Room Air BMI result Body Mass Index 26.0 Labs 03/04/24 15:31 03/06/24 08:02 Labs: Laboratory Results - last 48 hr 03/12/24 03/12/24 03/13/24 16:11 20:39 06:28 POC Glucose 119 H 155 H 128 H 03/13/24 03/13/24 03/13/24 11:04 16:05 19:43 POC Glucose 125 H 156 H 123 H 03/14/24 03/14/24 06:12 11:23 POC Glucose 133 H 119 H Medications Medications Current Medications Acetaminophen (Acetaminophen 325 Mg Tablet) 975 mg PO BID [facility] Last Admin: 03/14/24 08:08 Dose: 975 mg Al Hydroxide/Mg Hydroxide (Magnesium Hydrox/Alum Hydrox 30 Ml Oral.Susp) 30 ml PO Q6H PRN PRN Reason: Heartburn/Nausea Atorvastatin Calcium (Atorvastatin Calcium 20 Mg Tablet) 60 mg PO BEDTIME [facility] Last Admin: 03/13/24 20:36 Dose: 60 mg Benztropine Mesylate (Benztropine Mesylate 0.5 Mg Tablet) 0.5 mg PO BEDTIME PRN PRN Reason: secretions at bedtime Bisacodyl (Bisacodyl 10 Mg Supp.Rect) 10 mg [place] DAILY PRN PRN Reason: Constipation Cyanocobalamin (Cyanocobalamin (Vitamin B-12) 500 Mcg Tablet) 500 mcg PO DAILY [facility] Last Admin: 03/14/24 08:09 Dose: 500 mcg Fenofibrate (Fenofibrate 160 Mg Tablet) 160 mg PO DAILY [facility] Last Admin: 03/14/24 08:09 Dose: 160 mg Gemfibrozil (Gemfibrozil 600 Mg Tablet) 600 mg PO BID [facility] Last Admin: 03/14/24 08:09 Dose: 600 mg Glucose (Glucose Gel 15 Gm Gel..Gram.) 15 gm PO Q15M PRN; Protocol PRN Reason: per Hypoglycemia Standing Ord. Guaifenesin (Guaifenesin 100 Mg/5 Ml Liquid) 10 ml PO Q12H PRN PRN Reason: Cough Hydroxyzine HCl (Hydroxyzine Hcl 25 Mg Tablet) 25 mg PO Q6H PRN PRN Reason: Anxiety Last Admin: 03/12/24 02:01 Dose: 25 mg Dextrose (D10) 250 mls @ 750 mls/hr IV Q15M PRN; Protocol PRN Reason: per Hypoglycemia Standing Ord. Ibuprofen (Ibuprofen 800 Mg Tablet) 800 mg PO DAILY [facility] Last Admin: 03/14/24 08:09 Dose: 800 mg Insulin Human Lispro (Insulin Lispro 100 Unit/Ml 3 Ml Vial) 0 unit SUBCUT QIDACHS [facility]; Protocol Last Admin: 03/14/24 12:23 Dose: Not Given Levothyroxine Sodium (Levothyroxine Sodium 88 Mcg Tablet) 88 mcg PO DAILY@0600 [facility] Last Admin: 03/14/24 06:00 Dose: 88 mcg Lisinopril (Lisinopril 2.5 Mg Tablet) 2.5 mg PO DAILY [facility]; Protocol Last Admin: 03/14/24 08:09 Dose: 2.5 mg Magnesium Hydroxide (Milk Of Magnesia 30 Ml Oral.Susp) 30 ml PO DAILY PRN PRN Reason: Constipation Last Admin: 03/12/24 01:52 Dose: 30 ml Magnesium Hydroxide (Milk Of Magnesia 30 Ml Oral.Susp) 30 ml PO DAILY PRN PRN Reason: Constipation Naloxone HCl (Naloxone Hcl 0.4 Mg/Ml Vial) 0.4 mg IM Q2M PRN PRN Reason: suspected opioid overdose Naloxone HCl (Naloxone Hcl Nasal 4 Mg [place]) 4 mg NOSTRILALT Q3M PRN PRN Reason: suspected opioid overdose Risperidone (Risperidone 1 Mg Tablet) 8 mg PO BEDTIME [facility] Last Admin: 03/13/24 20:34 Dose: 8 mg Risperidone (Risperidone 1 Mg Tablet) 6 mg PO DAILY [facility] Last Admin: 03/14/24 08:08 Dose: 6 mg Sodium Biphosphate/Sodium Phosphate (Sodium Phosphate,[place]-Dibasic 133 Ml Enema) 118 ml [place] DAILY PRN PRN Reason: if bisacodyl supp ineffective Sodium Chloride (Sodium Chloride Tab 1 Gm Tablet) 1 gm PO BID [facility] Last Admin: 03/14/24 08:09 Dose: 1 gm Topiramate (Topiramate 100 Mg Tablet) 100 mg PO BID [facility] Last Admin: 03/14/24 08:09 Dose: 100 mg Trazodone HCl (Trazodone Hcl 50 Mg Tablet) 50 mg PO BEDTIME MRX1 PRN PRN Reason: Insomnia Last Admin: 03/09/24 20:20 Dose: 50 mg Vitamin D (Cholecalciferol (Vitamin D3) 25 Mcg Tablet) 25 mcg PO DAILY [facility] Last Admin: 03/14/24 08:08 Dose: 25 mcg Allergies Allergies Allergy/AdvReac Type Severity Reaction Status Date / Time allopurinol AdvReac Unknown Verified 03/04/24 15:10 chlorpromazine AdvReac Unknown Verified 03/04/24 15:10 haloperidol [From Haldol] AdvReac Unknown Verified 03/04/24 15:10 trifluoperazine AdvReac Unknown Verified 03/04/24 15:10 Assessment & Plan Assessment & Plan (1) Schizoaffective disorder: Status: Acute Code(s): F25.9 - Schizoaffective disorder, unspecified Plan The patient is an elderly male with a past history of schizoaffective disorder on a very high dose of Risperdal noncompliant with medications who was brought after stopping eating for 5 days and noncompliance with antipsychotics for more than 30 days. At this moment currently psychotic. Plan 03/07 UA for fishy smell, refused risperidone 6mg due to color- he does have a beth's includes GASTELUM--> risperidone Consta 50mg IM every 2 weeks. 03/08 keep same treatment 03/09 Patient says he is fine. He has been refusing his Risperdal because he says he only takes white pills. When personal lines underwriter met with him he said he thinks he does take Risperdal and that he will take Risperdal however when he learned it might not be a white pill, he hesitated and said he only takes white pills; however he repeatedly does take Risperdal. Patient asked the color of other pills as well -patient is on a community Latif -Risperdal Consta is an option on patient's community Latif; will defer to primary team whether not to administer (patient has been refusing p.o. Risperdal) 03/11 continue same treatment 03/12 continue same tx 03/13 continue same treatment 03/14 continue same treatment discharge tomorrow Reason for continued inpatient stay Substantial Risk for: inability to function, rapid decompensation and med/psych decompensation Time Spent With Patient Time: Total time managing care of this patient today __20__ minutes.
[2024-03-14 16:07] LABS: Glucose, Whole Blood 167 mg/dL (60-115)
[2024-03-14] MEDS: Insulin Lispro 100 UNIT/ML 3 ML VIAL SUBCUT (16:08)
[2024-03-14 20:00] VITALS: BP 142/63; PULSE 84; RESP 18; TEMP 36.5; O2SAT 97
[2024-03-14] MEDS: risperiDONE 1 MG TABLET 8 MG PO (20:30)
[2024-03-14] MEDS: Atorvastatin Calcium 20 MG TABLET 60 MG PO (20:33)
[2024-03-15 00:30] LABS: Glucose, Whole Blood 132 mg/dL (60-115)
[2024-03-15] MEDS: Levothyroxine Sodium 88 MCG TABLET PO (06:00)
[2024-03-15 08:06] LABS: Glucose, Whole Blood 160 mg/dL (60-115)
[2024-03-15] MEDS: risperiDONE 1 MG TABLET 6 MG PO (08:07)
[2024-03-15] MEDS: Ibuprofen 800 MG TABLET PO (08:09)
[2024-03-15] MEDS: Fenofibrate 160 MG TABLET PO (08:09)
[2024-03-15 08:10] VITALS: BP 108/56; PULSE 100; RESP 18; TEMP 36.6; O2SAT 100
[2024-03-15] MEDS: Cholecalciferol (Vitamin D3) 25 MCG TABLET PO (08:11)
[2024-03-15] MEDS: gemfibroziL 600 MG TABLET PO (08:11)
[2024-03-15] MEDS: Acetaminophen 325 MG TABLET 975 MG PO (08:11)
[2024-03-15] MEDS: Topiramate 100 MG TABLET PO (08:11)
[2024-03-15] MEDS: Sodium Chloride Tab 1 GM TABLET PO (08:12)
[2024-03-15] MEDS: lisinopriL 2.5 MG TABLET PO (08:12)
[2024-03-15] MEDS: Insulin Lispro 100 UNIT/ML 3 ML VIAL SUBCUT (08:13)
[2024-03-15] MEDS: Cyanocobalamin (Vitamin B-12) 500 MCG TABLET PO (08:13)
[2024-03-15 11:11] LABS: Glucose, Whole Blood 114 mg/dL (60-115)
--- NOTE | 2024-03-15 11:20 | P.DS_ITS ---
DS: Providers Provider Date of Service: 03/15/24 Date of admission: 03/05/24 16:41 Date of discharge: 03/15/24 Primary care physician: MONIQUE INMAN Consults: 03/09/24 18:40 Consult to Hospitalist Routine Comment: Consulting Provider: Hospitalist Reason For Exam: assess need for Lantus (not taking/not eat/POC ok) Attending physician on discharge: Fredi Gardiner DS: Diagnosis Discharge Diagnosis (1) Schizoaffective disorder: Status: Acute DS: Medications Discharge Medications Home Medications: Home Medications ?Medication ?Instructions ?Recorded ?Confirmed acetaminophen 325 mg tablet 325 mg PO Q8H PRN Mild Pain (Scale 03/05/24 03/05/24 Score 1-4) acetaminophen 325 mg tablet 975 mg PO BID 03/05/24 03/05/24 atorvastatin 20 mg tablet 60 mg PO BEDTIME 03/05/24 03/05/24 benztropine 0.5 mg tablet 0.5 mg PO BEDTIME PRN secretions 03/05/24 03/05/24 at bedtime bisacodyl 10 mg rectal suppository 10 mg NC DAILY PRN Constipation 03/05/24 03/05/24 cholecalciferol (vitamin D3) 25 25 mcg PO DAILY 03/05/24 03/05/24 mcg (1,000 unit) tablet (Vitamin D3) cyanocobalamin (vitamin B-12) 500 500 mcg PO DAILY 03/05/24 03/05/24 mcg tablet [id number] 24 24 g PO Q15M 03/05/24 03/05/24 gram/31 gram oral gel (Insta-Glucose (with dextrin)) fenofibrate 160 mg tablet 160 mg PO DAILY 03/05/24 03/05/24 gemfibrozil 600 mg tablet 600 mg PO BID 03/05/24 03/05/24 glucagon 1 mg/0.2 mL subcutaneous 1 mg subcut Q15M PRN hypoglycemia 03/05/24 03/05/24 solution (Gvoke) unresponsiveness guaifenesin 100 mg/5 mL oral liquid 200 mg PO Q12H PRN Cough 03/05/24 03/05/24 ibuprofen 800 mg tablet 800 mg PO DAILY 03/05/24 03/05/24 insulin glargine 100 unit/mL (3 4 unit subcut DAILY 03/05/24 03/05/24 mL) subcutaneous pen (Lantus Solostar U-100 Insulin) insulin lispro 100 unit/mL 1 sliding scale dose subcut 03/05/24 03/05/24 subcutaneous pen USEASDIRECTD levothyroxine 88 mcg tablet 88 mcg PO DAILY@0600 03/05/24 03/05/24 lisinopril 2.5 mg tablet 2.5 mg PO DAILY 03/05/24 03/05/24 magnesium hydroxide 400 mg/5 mL 30 ml PO DAILY PRN Constipation 03/05/24 03/05/24 oral suspension (Milk of Magnesia) naloxone 0.4 mg/mL injection 0.4 mg IM Q2M PRN suspected opioid 03/05/24 03/05/24 solution overdose naloxone 4 mg/actuation nasal 4 mg intranasal Q3M PRN suspected 03/05/24 03/05/24 spray (Narcan) opioid overdose risperidone 2 mg tablet 6 mg PO DAILY 03/05/24 03/05/24 risperidone 4 mg tablet 8 mg PO BEDTIME 03/05/24 03/05/24 sodium chloride 1,000 mg soluble 1,000 mg PO BID 03/05/24 03/05/24 tablet sodium phosphates 19 gram-7 118 ml NC DAILY PRN if bisacodyl 03/05/24 03/05/24 gram/118 mL enema (Fleet Enema) supp ineffective topiramate 100 mg tablet 100 mg PO BID 03/05/24 03/05/24 Mental Status Exam Mental Status Exam Patient Appearance: Well Grooomed and Appropriate Patient Orientation: Person and Situation Level of Consciousness: Awake and Appropriate Patient Behavior: Guarded and Passive Mood Description: Calm Affect Description: Constricted Patient Cognition Impaired: Yes Ability to Follow Directions: Good Speech Pattern: Clear Hallucinations: None Delusions: Ideas of Reference Thought Process: Distracted and Slowed Thinking Thought Content: positive for [place], positive for Perseveration and positive for Poverty of Content Judgement: Poor Data Data Completed and Pending Completed studies during hospitalization [Text1]: 03/08/24 03/08/24 03/08/24 11:19 16:31 19:51 POC Glucose 126 H 138 H 132 H 03/09/24 03/09/24 03/09/24 06:14 11:04 16:10 POC Glucose 130 H 115 151 H 03/09/24 03/10/24 03/10/24 19:47 06:28 11:14 POC Glucose 131 H 103 96 03/10/24 03/10/24 03/11/24 16:07 19:58 06:33 POC Glucose 106 92 100 03/11/24 03/11/24 03/11/24 11:32 16:33 20:05 POC Glucose 100 106 136 H 03/12/24 03/12/24 03/12/24 06:39 11:13 16:11 POC Glucose 120 H 94 119 H 03/12/24 03/13/24 03/13/24 20:39 06:28 11:04 POC Glucose 155 H 128 H 125 H 03/13/24 03/13/24 03/14/24 16:05 19:43 06:12 POC Glucose 156 H 123 H 133 H 03/14/24 03/14/24 03/14/24 11:23 16:03 19:44 POC Glucose 119 H 167 H 132 H 03/15/24 03/15/24 06:38 11:02 POC Glucose 160 H 114 DS: Summary Hospital Course Hospital Course: The patient is a 78-year-old male with a past history of schizoaffective disorder bipolar type, chronically mentally ill and institutionalized transfer from a senior care facility [facility] since he was not eating, drinking and he became noncompliant with medications for several days. Became psychotic, agitated and he was rushed to the emergency room. He was assessed by crisis and transferring to this facility for psychiatric stabilization. Please see the HPI of the admission note for further details. On intake, the patient was pleasantly confused, he agreed to start eating and drinking and also he agreed to restart his Risperdal. We did a full medical workout and we could not find any new infection or medical condition that could have explained the decompensation. Initially, the patient was very attention seeking, he wanted to be a wheelchair even though that he was able to walk. The occupational therapist and physical therapy assess him. The patient was had been compliant with medications, he stated that he wants the Risperdal 1 mg tablets, only the wide tablets 6 in the morning and 8 at 9. The patient had been perseverative and chronically mentally ill with negative symptoms. Even though he was compliant with medications who we presented his antipsychotics on 1 mg tablets. We contact his guardian, the patient is chronically mentally ill and he had been chronically institutionalized. Recently he was placed admission care after a long admission into the hospital. Apparently he became noncompliant of medications at the senior care facility. Initially, the patient was reluctant to go back but later on he agreed to go back to his facility. We gather collateral information and we checked on his court order for treatment over objection. The patient has a primary treatment Risperdal 6 mg in the morning and 8 mg at night and as a backup Invega Sustenna 156 mg and Risperdal Consta 50. Both doses of the long-acting injectables are subtherapeutic and definitely we put him back on dose long-acting injectables the patient would decompensate for sure. I spoke with the nurse practitioner admission care unexplained them to correct that court order and doing amendment. At this moment the patient is able to be discharged back to [facility] since he is at baseline. No safe Time spent discussing smoking cessation with patient: 3 to 10 minutes Status at Discharge Cognitive/behavioral status at discharge: At baseline impaired Functional status at discharge: independent ambulation Overall status at discharge: patient is back to baseline Time Spent with Patient Time attestation: Total time managing care of this patient today ____ minutes. Time spent: Less than 30 minutes Discharge Plan Discharge Anticipated Discharge Date/Time: 03/15/24 11:30 Patient Disposition: Xfer SNF Discharge Diagnosis: Schizoaffective disorder bipolar type Dementia Referrals: MONIQUE INMAN [Primary Care Provider] - 1 Week Discharge Medications: New acetaminophen 325 mg Tablet 975 mg PO BID 30 Days Qty: 180 0RF atorvastatin 20 mg Tablet 60 mg PO BEDTIME 30 Days Qty: 90 0RF benztropine 0.5 mg Tablet 0.5 mg PO BEDTIME PRN (Reason: secretions at bedtime) 30 Days Qty: 30 0RF ibuprofen 800 mg Tablet 800 mg PO DAILY 30 Days Qty: 30 0RF gemfibrozil 600 mg Tablet 600 mg PO BID 30 Days Qty: 60 0RF risperidone 1 mg Tablet 6 mg PO DAILY 30 Days Qty: 180 0RF Rx Instructions: Please give white 1 mg tablets lisinopril 2.5 mg Tablet 2.5 mg PO DAILY 30 Days Qty: 30 0RF Protocol: Hold for SBP< HOLD for SBP < : 90 fenofibrate 160 mg Tablet 160 mg PO DAILY 30 Days Qty: 30 0RF naloxone [Narcan] 4 mg/actuation [place],Non-Aerosol 4 mg intranasal (ALT) Q3M PRN (Reason: suspected opioid overdose) 30 Days Qty: 4 0RF risperidone 1 mg Tablet 8 mg PO BEDTIME 30 Days Qty: 240 0RF Rx Instructions: give 1 mg tab white trazodone 50 mg Tablet 50 mg PO BEDTIME MRX1 PRN (Reason: Insomnia) 30 Days Qty: 60 0RF levothyroxine 88 mcg Tablet 88 mcg PO DAILY@0600 30 Days Qty: 30 0RF magnesium hydroxide [Milk of Magnesia] 400 mg/5 mL Suspension 30 ml PO DAILY PRN (Reason: Constipation) 30 Days Qty: 360 0RF cyanocobalamin (vitamin B-12) 500 mcg Tablet 500 mcg PO DAILY 30 Days Qty: 30 0RF bisacodyl [Gentle Laxative (bisacodyl)] 10 mg Suppository 10 mg NC DAILY PRN (Reason: Constipation) 30 Days Qty: 30 0RF insulin lispro [Admelog U-100 Insulin lispro] 100 unit/mL Solution See Protocol subcut QIDACHS 30 Days Qty: 10 0RF Protocol: Insulin Correction Scale Less than or equal to 110 ---- Give (units): 0 111 to 150 Give (units): 0 151 to 200 Give (units): 2 201 to 250 Give (units): 4 251 to 300 Give (units): 6 301 to 350 Give (units): 8 Greater than 350 Give (units): 10 Call MD if Blood Glucose > : 350 topiramate 100 mg Tablet 100 mg PO BID 30 Days Qty: 60 0RF sodium chloride 1,000 mg Tablet,Soluble 1,000 mg PO BID 30 Days Qty: 60 0RF cholecalciferol (vitamin D3) 25 mcg (1,000 unit) Tablet 25 mcg PO DAILY 30 Days Qty: 30 0RF Discontinued acetaminophen 325 mg Tablet 325 mg PO Q8H PRN (Reason: Mild Pain (Scale Score 1-4)) Rx Instructions: not to exceed 3000 mg in 24 hours from any source acetaminophen 325 mg Tablet 975 mg PO BID Rx Instructions: not to exceed 3000 mg in 24 hours from any source atorvastatin 20 mg Tablet 60 mg PO BEDTIME benztropine 0.5 mg Tablet 0.5 mg PO BEDTIME PRN (Reason: secretions at bedtime) ibuprofen 800 mg Tablet 800 mg PO DAILY risperidone 4 mg Tablet 8 mg PO BEDTIME naloxone 0.4 mg/mL Solution 0.4 mg IM Q2M PRN (Reason: suspected opioid overdose) Rx Instructions: NTExceed 10 mg total dose/episode, administer IM in deltoid for suspected opioid overdose - repeat in 2-3 minutes if no reversal effect, signs of overdose may include pinpoint pupils, respiratory depression, or difficulty arousing resident guaifenesin 100 mg/5 mL Liquid 200 mg PO Q12H PRN (Reason: Cough) risperidone 2 mg Tablet 6 mg PO DAILY levothyroxine 88 mcg Tablet 88 mcg PO DAILY@0600 magnesium hydroxide [Milk of Magnesia] 400 mg/5 mL Suspension 30 ml PO DAILY PRN (Reason: Constipation) cyanocobalamin (vitamin B-12) 500 mcg Tablet 500 mcg PO DAILY gemfibrozil 600 mg Tablet 600 mg PO BID bisacodyl 10 mg Suppository 10 mg NC DAILY PRN (Reason: Constipation) Fleet Enema 19-7 gram/118 mL Enema 118 ml NC DAILY PRN (Reason: if bisacodyl supp ineffective) Rx Instructions: discontinue if on dialysis topiramate 100 mg Tablet 100 mg PO BID lisinopril 2.5 mg Tablet 2.5 mg PO DAILY insulin lispro [Humalog Pen] 100 unit/mL Insulin Pen 1 sliding scale dose SUBCUT USEASDIRECTD Rx Instructions: review and record administration site, 151-199 - 1 unit 200-249 - 2 units 250-299 - 3 units 300-349 - 4 units 350-999 - 5 units and call provider, call provider <70 or >349 fenofibrate 160 mg Tablet 160 mg PO DAILY sodium chloride 1,000 mg Tablet,Soluble 1,000 mg PO BID cholecalciferol (vitamin D3) [Vitamin D3] 25 mcg (1,000 unit) Tablet 25 mcg PO DAILY insulin glargine [Lantus Solostar U-100 Insulin] 100 unit/mL (3 mL) Insulin Pen 4 unit SUBCUT DAILY Insta-Glucose (with dextrin) 24 gram/31 gram Gel 24 g PO Q15M Rx Instructions: swallow contents of entire tube; for BS less than 60 with signs and symptoms, until BS greater than 100 naloxone [Narcan] 4 mg/actuation [place],Non-Aerosol 4 mg INTRANASAL Q3M PRN (Reason: suspected opioid overdose) Rx Instructions: spray 1 dose into ONE nostril; alternate nostrils w each dose until help arrives repeat within 2-3 minutes if no reversal effect, signs of overdose may include pinpoint pupils, respiratory depression, or difficulty arousing resident Gvoke 1 mg/0.2 mL Solution 1 mg SUBCUT Q15M PRN (Reason: hypoglycemia unresponsiveness) Rx Instructions: give 1 mg recheck FSG in 15 minutes, retreat until FSG is equal to 100 mg/dL every 15 minutes Discharge Orders: Discharge Order (Routine); Ordered 03/15/24 Ordered By: Fredi Gardiner Diet: Advance to usual diet Activity on Discharge: As tolerated Stand Alone Forms: Patient Portal Discharge page Print Language: Faroese Care Plan Goals: Care plan goals achieved in this admission Health Concerns: Continue treatment with primary care physician and other outpatient providers Plan of Treatment: Continue treatment as an outpatient Assessment: The patient is an elderly male with a past history of schizoaffective disorder bipolar type, chronically mentally ill and institutionalized with the guardian community court order for treatment over objection who was brought to the facility after he decided to stop his medications and stopped drinking and eating for 5 days in a row. The patient was assessed by crisis and transfer here. While he was admitted the patient started taking back his medications and he went back to baseline at this point he is able to go back to his senior care facility.
--- NOTE | 2024-03-15 14:06 | PC.NURSE ---
Pt. A & O X 3. Poor insight into situation. Excited to discharge back to [facility]. Hyperverbal and pressured speech, perseverating over money and clothing. Unable to answer mental status questions. Departed unit at 13:50 via stretcher accompanied by 2 EMS. Attempted nurse to nurse with [facility]. After multiple attempts left message on supervisor cd area's voicemail to call for report.
[2024-04-16 12:12] LABS: Glucose, Whole Blood 164 mg/dL (60-115)
== END 2024-03-15 13:50 | disposition skilled nursing facility (03) | DRG 885 ==
LOC: HO.ED 03-05 14:08 → HO.PGERI 03-05 18:12
PROVIDERS: Emergency Medicine; Admitting Provider Social Worker; Emergency Provider Emergency Medicine Emergency Medical Services; PCP Emergency Medicine; Visit Provider Social Worker
DX: F25.0 Schizoaffective disorder, bipolar type (principal); E11.9 Type 2 diabetes mellitus without complications; F03.90 Unspecified dementia, unspecified severity, without behavioral disturbance, psychotic disturbance, mood disturbance, and anxiety; J44.9 Chronic obstructive pulmonary disease, unspecified; E78.5 Hyperlipidemia, unspecified; Z91.148 Patient's other noncompliance with medication regimen for other reason; Z79.4 Long term (current) use of insulin; Z79.890 Hormone replacement therapy; Z79.899 Other long term (current) drug therapy
CPT/HCPCS: 36415; 80048; 80053; 80061; 81001; 81003; 82607; 82746; 82947; 83036; 83735; 84443; 85025; 93005; 99285; S9485

== ENCOUNTER → 2024-03-04 15:27 | Outpatient (BNV) | payer MEDICARE, MEDICAID, SELFPAY | PROVIDERS: Emergency Provider Emergency Medicine Emergency Medical Services; Visit Provider Internal Medicine | DX: R62.7 Adult failure to thrive (principal) | CPT/HCPCS: 93010 ==

== ENCOUNTER → 2024-03-05 16:41 | Outpatient (BNV) | payer MEDICARE, MEDICAID, SELFPAY | PROVIDERS: Admitting Provider Social Worker; Emergency Provider Emergency Medicine Emergency Medical Services; PCP Emergency Medicine; Visit Provider Psychiatry & Neurology Psychiatry | DX: F25.0 Schizoaffective disorder, bipolar type (principal) | CPT/HCPCS: 90792; 99231; 99232; 99238 ==